=== PATIENT | male | born 1965 | race Caucasian/White ===

== ENCOUNTER 2021-09-11 02:11 | Inpatient (IN) | payer BC, SELFPAY ==
[2021-09-11] VITALS (14 sets, daily range): BP systolic 123–154; BP diastolic 64–103; PULSE 88–121; RESP 14–22; TEMP 36.6–37.2; O2SAT 92–98; BMI 25.0
--- NOTE | 2021-09-11 02:15 | ED_ITS ---
HPI - General Adult General Chief complaint: Toxicology Problem Stated complaint: stopped drinking 2 days ago/trembling Time Seen by Provider: 09/11/21 02:15 History of Present Illness HPI narrative: 56-year-old male smoker with extensive alcohol history presents with a family friend and a chief complaint of symptoms consistent with alcohol withdrawal. He states he has been drinking daily for most of his life but upwards of 1/5 per week for least the past few months. His last drink was about 15 hours ago and he presents with symptoms consisting of headache, diaphoresis, anxiety and agitation as well as a resting tremor. He is nauseated but denies any vomiting. He denies suicidal or homicidal ideations. He denies auditory, visual or tactile hallucinations. He has quit cold turkey in the past and suffered some tremors but never any symptoms as severe as this, let alone seizures. He has never had detox or rehab. Related Data Allergies Allergy/AdvReac Type Severity Reaction Status Date / Time No Known Drug Allergies Allergy Verified 09/11/21 03:40 Review of Systems Review of Systems Narrative: GENERAL: See HP HEENT: Denies sinus pain, ear pain, sore throat, difficulty swallowing, dizziness. RESPIRATORY: Denies dyspnea, cough, wheezing, hemoptysis, sputum. CARDIOVASCULAR: See HPI GASTROINTESTINAL: See HPI : Denies dysuria, frequency, incontinence, hematuria, urinary retention. MUSCULOSKELETAL: denies weakness, joint pain, or bony pain SKIN: See HPI NEUROLOGIC: See HPI. PSYCHIATRIC: No concerning psychosocial issues. 12 point review of systems is negative except for those stated above Patient History Social History Smoking Status: Current every day smoker Exam Narrative Exam Narrative: GENERAL: [56 year old patient appears stated age. Well-developed patient, in obvious distress, agitated, anxious, tremulous and diaphoretic HEAD: Atraumatic. Normocephalic. EYES: Pupils equal round and reactive. Extraocular motions intact. No scleral icterus. No injection or drainage. ENT: Nose without bleeding, purulent drainage. Throat without erythema, tonsillar hypertrophy or exudate. Airway patent. NECK: Trachea midline. Non tender CARDIOVASCULAR: Tachycardic but regular rhythm without murmurs, gallops, or rubs. RESPIRATORY: Clear to auscultation. Breath sounds equal bilaterally. No wheezes, rales, or rhonchi. GASTROINTESTINAL: Abdomen soft, non-tender, nondistended. EXTREMITIES: No edema or joint tenderness. BACK: Nontender without deformity or crepitance. No flank tenderness. NEURO: AOx3. SKIN: Diaphoretic No rash or erythema of visible areas Initial Vital Signs Initial Vital Signs: Vital Signs Temperature 98.8 F 09/11/21 02:32 Pulse Rate 121 H 09/11/21 02:32 Respiratory Rate 22 09/11/21 02:32 Blood Pressure 154/103 H 09/11/21 02:32 Pulse Oximetry 96 09/11/21 02:32 Course Course Course Narrative: MAYEWA-Ar for Alcohol Withdrawal from [facility] on 09/11/2021 All calculations should be rechecked by clinician prior to use RESULT SUMMARY: 23 points Patients with scores >=0 frequently require medication for withdrawal, and may also require admission to the ICU for observation for seizures or development of delirium tremens, and more frequent medication dosing. INPUTS: Nausea/vomiting ?> 4 = Intermittent nausea with dry heaves Tremor ?> 4 = Moderate, with patient's arms extended Paroxysmal sweats ?> 4 = Beads of sweat obvious on forehead Anxiety ?> 4 = Moderately anxious, or guarded, so anxiety is inferred Agitation ?> 4 = Moderately fidgety and restless Tactile disturbances ?> 0 = None Auditory disturbances ?> 0 = Not present Visual disturbances ?> 0 = Not present Headache/fullness in head ?> 3 = Moderate Orientation/clouding of sensorium ?> 0 = Oriented, can do serial additions Orders Ordered: ED Orders 09/11/21 02:30 Urine Drug Screen, Rapid Stat 09/11/21 02:43 CT head/brain wo con Stat 09/11/21 02:45 Acetaminophen Stat COVID19 -Nasal RAPID/Pre-Proc Stat Complete Blood Count AUTO DIFF Stat Comprehensive Metabolic Panel Stat Ethanol (ETOH) Stat Magnesium Stat Salicylate Stat POTASSIUM CHLORIDE IN WATER (Potassium Cl 10 Meq/100 Ml Kailey) 10 meq in 100 mls @ 100 mls/hr IV Q1H JANKI Stop: 09/11/21 09:14 Discontinued Medications Sodium Chloride (Normal Saline 0.9%) 1,000 mls @ 1,000 mls/hr IV BOLUS ONE Stop: 09/11/21 03:29 Last Admin: 09/11/21 03:10 Dose: 1,000 mls/hr Documented by: ELIJAH Thiamine HCl 200 mg/ Sodium (Chloride) 102 mls @ 408 mls/hr IV NOW ONE Stop: 09/11/21 02:31 Last Infusion: 09/11/21 03:41 Dose: 0 mls/hr Documented by: Admin: 09/11/21 03:11 Dose: 408 mls/hr Documented by: ELIJAH Magnesium Sulfate (Magnesium Sulfate) 2 gm in 50 mls @ 150 mls/hr IV NOW ONE Stop: 09/11/21 03:42 Last Infusion: 09/11/21 04:46 Dose: 0 mls/hr Documented by: NANCY Cosigned by: FREDO Admin: 09/11/21 03:50 Dose: 150 mls/hr Documented by: NANCY Cosigned by: FREDO Ondansetron HCl (Ondansetron 4 Mg/2 Ml Inj) 4 mg IV NOW ONE Stop: 09/11/21 02:31 Last Admin: 09/11/21 02:52 Dose: 4 mg Documented by: ELIJAH Phenobarbital (Phenobarbital 65 Mg/Ml Vial) 260 mg IV NOW ONE Stop: 09/11/21 02:31 Last Admin: 09/11/21 02:52 Dose: 260 mg Documented by: ELIJAH Phenobarbital (Phenobarbital 65 Mg/Ml Vial) 130 mg IV NOW ONE Stop: 09/11/21 03:38 Last Admin: 09/11/21 03:50 Dose: 130 mg Documented by: NANCY Vital Signs Vital signs: Vital Signs - 8 hr 09/11/21 02:32 09/11/21 03:38 09/11/21 03:39 Temperature 98.8 F Pulse Rate 121 H 110 H 106 H Respiratory Rate 22 Blood Pressure 154/103 H 134/77 Pulse Oximetry 96 95 96 09/11/21 04:00 09/11/21 04:30 09/11/21 05:00 Temperature Pulse Rate 93 H 93 H 92 H Respiratory Rate Blood Pressure 138/66 136/64 130/73 Pulse Oximetry 92 96 98 Medical Decision Making Lab Data Result diagrams: 09/11/21 02:45 09/11/21 02:45 Labs: Lab Results 09/11/21 09/11/21 09/11/21 Range/Units 02:45 02:45 02:45 WBC 10.9 (4.5-11.0) X10^3/uL RBC 4.18 L (4.5-5.9) X10^6/uL Hgb 14.5 (13.5-17.5) g/dL Hct 41.3 (41-53) % MCV 98.9 (80-100) fL MCH 34.8 H (26-34) PG MCHC 35.2 (30-36) % RDW 13.8 (11.6-14.8) % Plt Count 130 L (150-400) X10^3/uL Neut % (Auto) 86.1 H (50-75) % Lymph % (Auto) 3.9 L (25-40) % Simpson % (Auto) 9.4 (3-14) % Eos % (Auto) 0.0 L (2-4) % Baso % (Auto) 0.6 (0-2) % Neut # (Auto) 9400 H (2455-1444) /uL Lymph # (Auto) 400 L (2060-9944) /uL Simpson # (Auto) 1000 H (0-900) /uL Eos # (Auto) 0 (0-450) /uL Baso # (Auto) 100 (0-100) /uL Sodium 130 L (137-145) mmol/L Potassium 3.1 L (3.4-5.1) mmol/L Chloride 86 L (98-107) mmol/L Carbon Dioxide 32 (22-32) mmol/L BUN 12 (9-20) mg/dL Creatinine 0.48 L (0.66-1.25) mg/dL Estimated GFR > 60 (>60) mL/min BUN/Creatinine Ratio 25.0 H (6-22) Glucose 229 H (70-100) mg/dL Calcium 9.9 (8.4-10.2) mg/dL Magnesium 1.3 L (1.6-2.3) mg/dL Total Bilirubin 1.3 (0.2-1.3) mg/dL AST 161 H (17-59) IU/L ALT 93 H (<50) IU/L Alkaline Phosphatase 73 (38-126) U/L Total Protein 8.0 (6.3-8.2) g/dL Albumin 5.0 (3.5-5.0) g/dL Globulin 3.0 (1.7-4.1) g/dL Albumin/Globulin Ratio 1.7 (1.0-2.8) Salicylates < 1.0 (<20) mg/dL Acetaminophen < 10 (10-30) ug/mL Ethyl Alcohol < 10 ( - 10) mg/dL SARS-CoV-2 (PCR) (Negative) 09/11/21 Range/Units 02:45 WBC (4.5-11.0) X10^3/uL RBC (4.5-5.9) X10^6/uL Hgb (13.5-17.5) g/dL Hct (41-53) % MCV (80-100) fL MCH (26-34) PG MCHC (30-36) % RDW (11.6-14.8) % Plt Count (150-400) X10^3/uL Neut % (Auto) (50-75) % Lymph % (Auto) (25-40) % Simpson % (Auto) (3-14) % Eos % (Auto) (2-4) % Baso % (Auto) (0-2) % Neut # (Auto) (2729-9572) /uL Lymph # (Auto) (5032-8023) /uL Simpson # (Auto) (0-900) /uL Eos # (Auto) (0-450) /uL Baso # (Auto) (0-100) /uL Sodium (137-145) mmol/L Potassium (3.4-5.1) mmol/L Chloride (98-107) mmol/L Carbon Dioxide (22-32) mmol/L BUN (9-20) mg/dL Creatinine (0.66-1.25) mg/dL Estimated GFR (>60) mL/min BUN/Creatinine Ratio (6-22) Glucose (70-100) mg/dL Calcium (8.4-10.2) mg/dL Magnesium (1.6-2.3) mg/dL Total Bilirubin (0.2-1.3) mg/dL AST (17-59) IU/L ALT (<50) IU/L Alkaline Phosphatase (38-126) U/L Total Protein (6.3-8.2) g/dL Albumin (3.5-5.0) g/dL Globulin (1.7-4.1) g/dL Albumin/Globulin Ratio (1.0-2.8) Salicylates (<20) mg/dL Acetaminophen (10-30) ug/mL Ethyl Alcohol ( - 10) mg/dL SARS-CoV-2 (PCR) Negative (Negative) Discharge Plan Departure Patient Disposition: Admitted As Inpatient Clinical Impression: Alcohol withdrawal syndrome, Alcohol withdrawal delirium, Hypomagnesemia, Acute hypokalemia Admit Date/Time: 09/11/21 05:15 Admit Provider: Atif Coffey
--- NOTE | 2021-09-11 02:43 | DI.CT.S_ITS ---
PROCEDURE: CT HEAD/BRAIN WO CON INDICATIONS: fall with injury, extensive etoh history TECHNIQUE: Noncontrast 4.5 mm thick angled axial sections acquired from the foramen magnum to the vertex, with coronal and sagittal reformats. For radiation dose reduction, the following was used: automated exposure control, adjustment of mA and/or kV according to patient size. COMPARISON: None. FINDINGS: Image quality: Excellent. CSF spaces: Basal cisterns are patent. No extra-axial fluid collections. Ventricles are normal in size and shape. Brain: No midline shift. No intracranial masses or hemorrhage. Gandhi-white matter interface is normal. Skull and face: Calvarium and visualized facial bones are intact, without suspicious lesions. Sinuses: Visualized sinuses and mastoids are clear. IMPRESSION: No acute intracranial abnormality. Dictated by: Meaghan Smith M.D. on 09/11/2021 at 8:10 Approved by: Meaghan Smith M.D. on 09/11/2021 at 8:11
[2021-09-11 02:52] LABS: Add Manual Diff / Slide Review NO; Basophils Absolute Auto 100 /uL (0-100); Basophils Percent Auto 0.6 % (0-2); Eosinophils Absolute Auto 0 /uL (0-450); Hematocrit 41.3 % (41-53); Hemoglobin 14.5 g/dL (13.5-17.5); Lymphocytes Absolute Auto 400 /uL (1100-4500); Lymphocytes Percent Auto 3.9 % (25-40); Mean Corpuscular HGB Conc 35.2 % (30-36); Mean Corpuscular Hemoglobin 34.8 PG (26-34); Mean Corpuscular Volume 98.9 fL (80-100); Monocytes Absolute Auto 1000 /uL (0-900); Monocytes Percent Auto 9.4 % (3-14); Neutrophils Absolute Auto 9400 /uL (1500-7000); Neutrophils Percent Auto 86.1 % (50-75); Platelet Count 130 X10^3/uL (150-400); Red Blood Cell Count 4.18 X10^6/uL (4.5-5.9); Red Cell Distribution Width 13.8 % (11.6-14.8); White Blood Cell Count 10.9 X10^3/uL (4.5-11.0)
[2021-09-11] MEDS: ONDANSETRON 4 MG/2 ML INJ IV (02:52)
[2021-09-11] MEDS: PHENobarbital 65 MG/ML VIAL 260 MG IV (02:52)
[2021-09-11 03:01] LABS: Acetaminophen < 10 ug/mL (10-30); Ethanol (ETOH) < 10 mg/dL; Salicylate < 1.0 mg/dL (<20)
[2021-09-11 03:03] LABS: Alanine Aminotransferase 93 IU/L (<50); Albumin Globulin Ratio 1.7 (1.0-2.8); Alkaline Phosphatase 73 U/L (38-126); Aspartate Aminotransferase 161 IU/L (17-59); Bilirubin Total 1.3 mg/dL (0.2-1.3); Blood Urea Nitrogen 12 mg/dL (9-20); Calcium 9.9 mg/dL (8.4-10.2); Carbon Dioxide 32 mmol/L (22-32); Chloride 86 mmol/L (98-107); Estimated Glomerular Filt Rate > 60 mL/min (>60); Glucose 229 mg/dL (70-100); HEMOLYSIS 25 (0-50); Magnesium 1.3 mg/dL (1.6-2.3); Potassium 3.1 mmol/L (3.4-5.1); Sodium 130 mmol/L (137-145)
[2021-09-11] MEDS: SODIUM CHLORIDE 0.9% 1,000 ML 1000 ML IV (03:10)
[2021-09-11] MEDS: THIAMINE 200 MG in SODIUM CHLORIDE 0.9% 100 ML 408 MG IV ×2 (03:11→11:38)
[2021-09-11 03:13] LABS: COVID19 -Nasal RAPID Negative (Negative)
[2021-09-11] MEDS: MAGNESIUM SULFATE 2 GM/50 ML PIGGYBACK IV ×2 (03:50→08:52)
[2021-09-11] MEDS: PHENobarbital 65 MG/ML VIAL 130 MG IV (03:50)
[2021-09-11] MEDS: POTASSIUM CHLORIDE IN WATER 10 MEQ/100 ML PIGGYBACK 100 MEQ IV ×4 (05:35→10:28)
--- NOTE | 2021-09-11 06:10 | P.HP_ITS ---
History of Present Illness History of Present Illness Date Patient Seen: 09/11/21 Time Patient Seen: 06:10 Date of Onset of Symptoms: 09/10/21 Chief complaint: stopped drinking 2 days ago/trembling Narrative: Pt presented to ED with anxuiety and trembling after quitting drinking cold turkey two days ago. He usually drinks about a fifth of liquour per week and doesn't have too much in the way of withdrawal symptoms when he discontinues ho wever this time he required multiple rounds of IV phenobarbitol to get his symptoms under control in the ED. 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 Fell on head ~1 week ago has L eye shiner did not lose consciousness. Patient History Medical History (Updated 09/11/21 @ 06:30 by Deb Ken RN) Emphysema of lung GERD (gastroesophageal reflux disease) Hypertension Family & Social History Safety & Behavioral: Feels Safe in Current Yes Environment Suicidal Ideation Description None Tobacco & Substance use: Smoking Status Current every day smoker alcohol intake frequency 3 or more drinks per day Substance Use Type does not use Meds Home Medications and Allergies Home Medications Medication Instructions Recorded Confirmed Type hydrochlorothiazide 25 mg tablet 25 mg PO DAILY 09/11/21 09/11/21 History omeprazole 40 mg capsule,delayed 40 mg PO DAILY 09/11/21 09/11/21 History release Allergies Allergy/AdvReac Type Severity Reaction Status Date / Time No Known Drug Allergies Allergy Verified 09/11/21 03:40 Review of Systems Review of Systems Narrative: all systems reviewed and negative except as otherwise documented in HPI Exam Vital Signs (past 8 hours): - 09/11/21 02:32 09/11/21 03:38 09/11/21 03:39 Temperature 98.8 F Pulse Rate 121 H 110 H 106 H Respiratory Rate 22 Blood Pressure 154/103 H 134/77 Pulse Oximetry 96 95 96 09/11/21 04:00 09/11/21 04:30 09/11/21 05:00 Temperature Pulse Rate 93 H 93 H 92 H Respiratory Rate Blood Pressure 138/66 136/64 130/73 Pulse Oximetry 92 96 98 Oxygen Delivery Method Room Air HENMT Head: contusion Eyes Alignment and Position: alignment normal and position normal Periorbital: periorbital findings abnormal (L outer periorbital bruise) Pupils: PERRL EOM: EOM intact bilaterally Neck Neck: normal visual inspection and full ROM Resp Auscultation: clear to auscultation bilaterally Cardio Other: fast rate regular rhythm GI Other: active bowel sounds nontender to auscultation Skin General: ecchymosis (fading bruising to L eye socket) and other (mildly diaphoretic) Neuro General: patient alert, patient awake, patient oriented x3 and moves all extremities Other: mildly anxious and shaky. mild asterixes noted. Extrem General: full ROM and no pedal edema Psych Appearance: grossly normal and disheveled Other: shaky but conversant and interactive Objective Labs Result Diagrams: 09/11/21 02:45 09/11/21 02:45 Labs: Laboratory Results - last 24 hr 09/11/21 09/11/21 09/11/21 02:45 02:45 02:45 WBC 10.9 RBC 4.18 L Hgb 14.5 Hct 41.3 MCV 98.9 MCH 34.8 H MCHC 35.2 RDW 13.8 Plt Count 130 L Neut % (Auto) 86.1 H Lymph % (Auto) 3.9 L Garden % (Auto) 9.4 Eos % (Auto) 0.0 L Baso % (Auto) 0.6 Neut # (Auto) 9400 H Lymph # (Auto) 400 L Garden # (Auto) 1000 H Eos # (Auto) 0 Baso # (Auto) 100 Sodium 130 L Potassium 3.1 L Chloride 86 L Carbon Dioxide 32 BUN 12 Creatinine 0.48 L Estimated GFR > 60 BUN/Creatinine Ratio 25.0 H Glucose 229 H Calcium 9.9 Magnesium 1.3 L Total Bilirubin 1.3 AST 161 H ALT 93 H Alkaline Phosphatase 73 Total Protein 8.0 Albumin 5.0 Globulin 3.0 Albumin/Globulin Ratio 1.7 Salicylates < 1.0 Acetaminophen < 10 Ethyl Alcohol < 10 SARS-CoV-2 (PCR) 09/11/21 02:45 WBC RBC Hgb Hct MCV MCH MCHC RDW Plt Count Neut % (Auto) Lymph % (Auto) Garden % (Auto) Eos % (Auto) Baso % (Auto) Neut # (Auto) Lymph # (Auto) Garden # (Auto) Eos # (Auto) Baso # (Auto) Sodium Potassium Chloride Carbon Dioxide BUN Creatinine Estimated GFR BUN/Creatinine Ratio Glucose Calcium Magnesium Total Bilirubin AST ALT Alkaline Phosphatase Total Protein Albumin Globulin Albumin/Globulin Ratio Salicylates Acetaminophen Ethyl Alcohol SARS-CoV-2 (PCR) Negative Assessment & Plan Assessment & Plan narrative: #Alcohol withdrawal syndrome got phenobarb in ED feeling a bit better still some diaphoresis and shakiness continue protocol prn IV benzos thiamine and IVF elevated liver enzymes c/w alcohol abuse #Hypomagnesemia repleted in ED will continue with IV thiamine, K, magnesium in IVF #Acute hypokalemia mild replete and recheck #GERD mild continue home omeprazole #essential hypertension per pt report, home meds not in the computer, monitor BP for now with PRN labetalol #s/p GLF with head injury no LOC L eye bruise is fading states he just tripped on something a week ago. fall precautions. 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
[2021-09-11 07:02] LABS: UR Morphine/Opiate cutoff 300 Negative (Negative); Ur Creatinine Normal (Normal); Ur Specific Gravity Normal (Normal); Urine Amphetamines Negative (Negative); Urine Barbiturates Negative (Negative); Urine Benzodiazepines Negative (Negative); Urine Cocaine Negative (Negative); Urine MDMA Negative (Negative); Urine Methadone Negative (Negative); Urine Methamphetamines Negative (Negative); Urine Oxycodone Negative (Negative); Urine Phencyclidine Negative (Negative); Urine Tetrahydrocannabinol Negative (Negative); Urine Tricyclic Antidepressant Negative (Negative); Urine pH Normal (Normal)
[2021-09-11] MEDS: SODIUM CHLORIDE 0.9% 1,000 ML 100 ML IV ×2 (07:04→20:15)
[2021-09-11] MEDS: ACETAMINOPHEN 325 MG TABLET 650 MG PO ×2 (07:23→20:31)
[2021-09-11] MEDS: PANTOPRAZOLE DR 40 MG TABLET PO (07:30)
[2021-09-11] MEDS: hydroCHLOROthiazide 25 MG TABLET PO (08:16)
[2021-09-11] MEDS: DOCUSATE 100 MG CAPSULE PO ×2 (08:16→20:30)
[2021-09-11] MEDS: FOLIC ACID 1 MG TABLET PO (08:16)
[2021-09-11] MEDS: ENOXAPARIN 40 MG/0.4 ML SYRINGE SUBCUT (08:16)
[2021-09-11] MEDS: THIAMINE 100 MG TABLET PO (08:17)
[2021-09-11] MEDS: NICOTINE 14 PATCH 14 MG TOP (08:17)
[2021-09-11] MEDS: MULTIVITAMIN 1 TABLET 1 TAB PO (08:17)
[2021-09-11] MEDS: LORazepam 2 MG/ML INJ IV (09:19)
--- NOTE | 2021-09-11 09:25 | CM.DANOTE ---
Patient is a 56 yo male was admitted on 09/11/21 for ETOH. Pt has [employer] for insurance and his PCP is not listed. EMR was reviewed. Per MD, pt admitted for ETOH withdrawal requiring med management and on [facility] protocol. SW met bedside with pt and explained role and pt confirms he lives at home with spouse of 32 yrs in [place] and pt works at [employer] through a contracted company. Pt is independent at baseline, drives, completes own ADLs and is employed and does not use DME for ambulation. Pt states he was on [facility] visiting an old [id number] jack when he became weak, tremulous, and could not walk and began having ETOH withdrawals. Pt confirms he started by drinking beer on the weekends and then switched to Whiskey and now has at least a 5th of Whiskey a week. Pt denies any hx of ETOH tx but confirms he stopped cold turkey 3 days ago because he has begun to notice the negative physical and medical impacts alcohol is having on his body and states it's begun to have a negative effect on my marriage. Pt denies any hx of significant ETOH withdrawals before and confirms that this is the worst withdrawals he has had yet. SW discussed the increased negative impacts of ETOH on the body as it ages and that withdrawal symptoms tend to increase with age as well as increased medical conditions with ongoing alcohol consumption and pt acknowledges understanding and beginning to notice this change. Pt states he stopped drinking in Mar 2021 a few months ago on his own and noticed how much better he felt but then relapsed. Pt has considered ETOH tx, he states ideally he would be interested in a 7 day program, but has felt too embarrassed to take the final step of calling to set it up. Pt states he is not comfortable talking to others besides hospital staff about his personal issues which is a barrier to him setting up treatment or ETOH counseling. Pt is still in the contemplative stage and not yet willing to take the official step of setting up outpt or inpt tx at this time but is agreeable with SW checking on him closer to d/c about providing ETOH resources. Pt states his vehicle is local as he was visiting his friend on [facility] and likely plans to drive himself back home to [place] when medically stable and has been attempting to get sol of his spouse to inform her he is in the hospital. Plan: SW to follow closer to d/c to confirm if pt remains interested in ETOH resources prior to d/c back home with spouse via own POV. ROWAN Lozano Discharge Planning/Care Management CM Discharge Assessment Start: 09/11/21 09:20 Freq: Status: Active Protocol: Document 09/11/21 09:21 BF (Rec: 09/11/21 09:25 BF [id number]) Discharge Planning Assessment Assigned Protection Officer ROWAN Morales DPOA/Assigned Designee Name spouse Arabella informally Advance Directives? No Advance Directives on File No History Provided By Patient,Medical Record Has Patient been admitted in last 30 No days? Prior Living Arrangements House Household Members spouse Type of transporation used prior to Drives own vehicle admit Independent with ADL's Yes Is patient alert and oriented? Yes Caregiver for Another No Barriers to Discharge No Discharge Plan Home Transportation Arrangement Has own vehicle here Referrals Initiated Other Additional Comment If pt remains interested, will provide ETOH resources Whiteboard Updated in Patient Room with Yes name and ext. # of Protection Officer Review Status In Process Please Provide Date Initial DC 09/11/21 Assessment Was Performed Next Review Type Continued Stay Review
[2021-09-11] MEDS: FLUTICASONE 120 SPRAY/16 GM SPRAY.SUSP NASAL (13:35)
--- NOTE | 2021-09-11 18:50 | PC.NURSE ---
Pt is AxOx4, independent and cooperative. VSS, pt c/o headache in the morning and recieved PRN tylenol 650mg with good effect. Pt later c/o feeling sweaty and nauseas so then CIWA assessment done. it was -10 so pt recieved 1mg IV Ativan with good effect. Pt is eating and drinking well. Also, pt is recieved IV NS 100 ml/hr. Pt's CIWA score was 0 since he recieved Ativan. Pt recieved IV Potassium, Magnesium and Thiamine. No other changes. Continue monitor.
[2021-09-11] MEDS: BENZOCAINE/MENTHOL 1 LOZ PKT 1 EACH PO (22:51)
[2021-09-12 00:20] VITALS: BP 144/84; PULSE 97; RESP 18; TEMP 37.2; O2SAT 97
[2021-09-12] MEDS: ACETAMINOPHEN 325 MG TABLET 650 MG PO (04:44)
[2021-09-12 04:50] VITALS: BP 154/88; PULSE 86; RESP 18; TEMP 36.9; O2SAT 99
[2021-09-12 05:46] LABS: Hematocrit 38.3 % (41-53); Hemoglobin 13.5 g/dL (13.5-17.5); Mean Corpuscular HGB Conc 35.2 % (30-36); Mean Corpuscular Hemoglobin 35.3 PG (26-34); Mean Corpuscular Volume 100.1 fL (80-100); Platelet Count 82 X10^3/uL (150-400); Red Blood Cell Count 3.83 X10^6/uL (4.5-5.9); Red Cell Distribution Width 13.4 % (11.6-14.8); White Blood Cell Count 6.7 X10^3/uL (4.5-11.0)
[2021-09-12 05:53] LABS: BUN Creatinine Ratio 9.8 (6-22); Blood Urea Nitrogen 5 mg/dL (9-20); Calcium 8.7 mg/dL (8.4-10.2); Carbon Dioxide 29 mmol/L (22-32); Chloride 99 mmol/L (98-107); Estimated Glomerular Filt Rate > 60 mL/min (>60); Glucose 100 mg/dL (70-100); HEMOLYSIS < 15 (0-50); Potassium 3.4 mmol/L (3.4-5.1); Sodium 130 mmol/L (137-145)
[2021-09-12] MEDS: PANTOPRAZOLE DR 40 MG TABLET PO (05:53)
[2021-09-12] MEDS: SODIUM CHLORIDE 0.9% 1,000 ML 100 ML IV (06:20)
[2021-09-12 07:45] VITALS: BP 142/81; PULSE 86; RESP 17; TEMP 36.9; O2SAT 94
[2021-09-12] MEDS: hydroCHLOROthiazide 25 MG TABLET PO (08:11)
[2021-09-12] MEDS: THIAMINE 100 MG TABLET PO (08:11)
[2021-09-12] MEDS: MULTIVITAMIN 1 TABLET 1 TAB PO (08:11)
[2021-09-12] MEDS: FOLIC ACID 1 MG TABLET PO (08:11)
[2021-09-12] MEDS: NICOTINE 14 PATCH 14 MG TOP (08:11)
[2021-09-12] MEDS: FLUTICASONE 120 SPRAY/16 GM SPRAY.SUSP NASAL (08:12)
[2021-09-12] MEDS: POTASSIUM CHLORIDE 20 MEQ TAB 40 MEQ PO (08:13)
[2021-09-12 08:55] VITALS: BMI 25.0
[2021-09-12 11:30] VITALS: BP 142/96; PULSE 103; RESP 19; TEMP 36.7; O2SAT 97
--- NOTE | 2021-09-12 15:29 | PM.PN.1 ---
Subjective Subjective Date Patient Seen: 09/12/21 Time Patient Seen: 08:00 Interval history: Feeling improved today. He thinks his withdrawal symptoms are much better. He is notably tremulous and diaphoretic. Exam Vital Signs (past 8 hours): - 09/12/21 07:45 09/12/21 11:30 Temperature 98.5 F 98.0 F Pulse Rate 86 103 H Respiratory Rate 17 19 Blood Pressure 142/81 H 142/96 H Pulse Oximetry 94 97 Oxygen Delivery Method Room Air Oxygen Flow Rate 0 Narrative Exam Narrative: GEN: no acute distress CV: regular rate and rhythm, no murmurs SKIN: diaphoretic NEURO: awake, alert, tremulous Objective Labs Result Diagrams: 09/12/21 05:15 09/12/21 05:15 Labs: Laboratory Results - last 24 hr 09/12/21 09/12/21 09/12/21 05:15 05:15 05:15 WBC 6.7 RBC 3.83 L Hgb 13.5 Hct 38.3 L MCV 100.1 H MCH 35.3 H MCHC 35.2 RDW 13.4 Plt Count 82 L Sodium 130 L Potassium 3.4 Chloride 99 Carbon Dioxide 29 BUN 5 L Creatinine 0.51 L Estimated GFR > 60 BUN/Creatinine Ratio 9.8 Glucose 100 D Calcium 8.7 Magnesium 2.0 PFSH Medical History (Updated 09/11/21 @ 06:31 by Deb Ken RN) Emphysema of lung Enlarged tonsils and adenoids GERD (gastroesophageal reflux disease) Hypertension Surgical History (Updated 09/11/21 @ 06:31 by Deb Ken RN) H/O nasal septoplasty Social History household members: spouse Smoking Status: Current every day smoker Assessment & Plan Assessment & Plan narrative: #Alcohol withdrawal syndrome got phenobarb in ED feeling a bit better still some diaphoresis and shakiness continue protocol prn IV benzos thiamine and IVF elevated liver enzymes c/w alcohol abuse order thiamine, folate, mvi ciwa protocol for withdrawal dc with naltrexone for cravings #Hypomagnesemia repleted in ED will continue with IV thiamine, K, magnesium in IVF #Acute hypokalemia mild replete and recheck #GERD mild continue home omeprazole #essential hypertension per pt report, home meds not in the computer, monitor BP for now with PRN labetalol #s/p GLF with head injury no LOC L eye bruise is fading states he just tripped on something a week ago. fall precautions. Time Spent With Patient Critical Care time: I spent a total of [] minutes of critical care time on this patient's care today; this time is exclusive of procedural time. Quality VTE Deep Vein Thrombosis/Pulmonary Embolism Present on Admission: No
[2021-09-12 17:00] VITALS: BP 137/79; PULSE 94; RESP 20; TEMP 36.9; O2SAT 96
[2021-09-12 20:15] VITALS: BP 162/96; PULSE 98; RESP 18; TEMP 36.7; O2SAT 98
[2021-09-13 01:30] VITALS: BP 139/72; PULSE 77; RESP 16; TEMP 36.8; O2SAT 98
[2021-09-13 05:33] LABS: BUN Creatinine Ratio 12.8 (6-22); Blood Urea Nitrogen 6 mg/dL (9-20); Calcium 9.2 mg/dL (8.4-10.2); Carbon Dioxide 26 mmol/L (22-32); Chloride 100 mmol/L (98-107); Estimated Glomerular Filt Rate > 60 mL/min (>60); Glucose 114 mg/dL (70-100); HEMOLYSIS < 15 (0-50); Potassium 3.2 mmol/L (3.4-5.1); Sodium 134 mmol/L (137-145)
[2021-09-13] MEDS: PANTOPRAZOLE DR 40 MG TABLET PO (05:49)
[2021-09-13 06:00] VITALS: BP 141/92; PULSE 61; RESP 14; TEMP 36.4; O2SAT 100
[2021-09-13 08:00] VITALS: BP 139/92; PULSE 90; RESP 19; TEMP 36.1; O2SAT 98
[2021-09-13] MEDS: MULTIVITAMIN 1 TABLET 1 TAB PO (09:47)
[2021-09-13] MEDS: hydroCHLOROthiazide 25 MG TABLET PO (09:47)
[2021-09-13] MEDS: FOLIC ACID 1 MG TABLET PO (09:47)
[2021-09-13] MEDS: THIAMINE 100 MG TABLET PO (09:47)
[2021-09-13] MEDS: NICOTINE 14 PATCH 14 MG TOP (09:48)
[2021-09-13] MEDS: POTASSIUM CHLORIDE 20 MEQ/15 ML UDC 40 MEQ PO (09:53)
--- NOTE | 2021-09-13 10:05 | P.DS_ITS ---
History of Present Illness History of Present Illness Date Patient Seen: 09/13/21 Time Patient Seen: 10:05 Chief complaint: stopped drinking 2 days ago/trembling Narrative: History of Present Illness History of Present Illness Date Patient Seen: 09/11/21 Time Patient Seen: 06:10 Date of Onset of Symptoms: 09/10/21 Chief complaint: stopped drinking 2 days ago/trembling Narrative: Pt presented to ED with anxuiety and trembling after quitting drinking cold turkey two days ago. He usually drinks about a fifth of liquour per week and doesn't have too much in the way of withdrawal symptoms when he discontinues however this time he required multiple rounds of IV phenobarbitol to get his symptoms under control in the ED. 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 Fell on head ~1 week ago has L eye shiner did not lose consciousness. Patient History Medical History?(Updated 09/11/21 @ 06:30 by Deb Ken RN) Emphysema of lung GERD (gastroesophageal reflux disease) Hypertension Family & Social History Safety & Behavioral: Feels Safe in Current ? Yes ? Environment ? Suicidal Ideation Description? None? Tobacco & Substance use: Smoking Status? Current every day smoker? alcohol intake frequency? 3 or more drinks per day? Substance Use Type? does not use? Discharge Providers Provider Date of admission: 09/11/21 05:15 Discharge Date: 09/13/21 Consults: 09/11/21 06:08 Consult to Dietitian, Adult Routine Comment: Reason For Exam: etoh wdrawal 09/11/21 06:49 Consult to Respiratory Therapy Evaluate & Treat Comment: Physician Instructions: Evaluate and treat Consult to Explosive Ordnance Handler Routine Comment: Discharge provider: Kate Pruitt DO Summary Hospital Course Discharge Diagnosis: ETOH ABUSE; WITH POSS ETOH WITHDRAWAL. RESOLVED APPEARS AT BASELINE. COUNSELING GIVEN POSSIBLE ANXIETY AND DEPRESSION NOS. DISCHARGE ON NEW MEDS. COUNSELING GIVEN WELL HYPOKALEMIA. POTASSIUM TO BE REPLACED PRIOR TO DISCHARGE. THROMBOCYTOSIS. HE RELATED TO ALCOHOL ABUSE. WORKUP OUTPATIENT TO RULE OU T CIRRHOSIS HYPONATREMIA. MULTIFACTORIAL. NO ACUTE TREATMENT INDICATED. MONITOR CLOSELY Hospital Course: THIS IS A VERY PLEASANT 56-YEAR-OLD MAN ADMITTED TO THE HOSPITAL WITH SIGN OF POSSIBLE ALCOHOL WITHDRAWAL. PATIENT ADMITTED USING EXTENSIVE AMOUNT OF ALCOHOL PRIOR TO ADMISSION. HE WAS PLACED ON OBSERVATION MONITOR CLOSELY. HE WAS NOTED TO HAVE SOME TREMORS PRESENT IN THE ER WHICH HAVE NOW RESOLVED. MENTALLY PATIENT APPEARED TO BE BACK TO BASELINE. LABS IS BEEN FAIRLY STABLE APART FROM SOME MILD ELECTROLYTE IMBALANCE WHICH WILL BE CORRECTED ON DISPOSITION. PATIENT WAS ON HYDROCHLOROTHIAZIDE . THIS WILL BE CONTINUED AT THIS TIME WELL DUE TO HYPOKALEMIA NOTED PRIOR TO DISCHARGE. PATIENT ENCOURAGED TO SEEK FOR HELP IN THE COMMUNITY IN REGARD TO SUBSTANCE ABUSE. BOTTOMING ROOM INSPECTOR IS AWARE AND WILL PROVIDE PATIENT WITH THE RESOURCES REQUESTED PRIOR TO DISCHARGE. PATIENT COULD SELF REFERRED TO AA WELL OTHER PROGRAMS AVAILABLE IN THE AREA TO HELP WITH HIS SUBSTANCE ABUSE. IN THE MEANWHILE, HE WILL BE STARTED ON CLONIDINE B.I.D. WELL GABAPENTIN T.I.D. ALSO STARTED ON BUSPAR TO HELP WITH ANXIETY AND DEPRESSION WHICH HE REPORTED. TRAZODONE WILL BE ADDED TO HELP WITH SLEEP AT NIGHT WELL ANXIETY. EXTENSIVE COUNSELING GIVEN PRIOR TO DISCHARGE. PATIENT WILL NEED A CT SCAN OF THE ABDOMEN VERSUS ULTRASOUND TO RULE OUT POSSIBLE DEVELOPING CIRRHOSIS . THIS CAN BE DONE OUTPATIENT COULD ALSO BE REFERRED TO GASTROENTEROLOGY OUTPATIENT FOR FURTHER CARE. DUE TO HIS LOW PLATELET, HE NEEDS TO BE MONITOR CLOSELY ADDITIONAL MANAGEMENT WILL BE DEFERRED TO OUTPATIENT PROVIDERS Exam Vital Signs (past 8 hours): - 09/13/21 06:00 09/13/21 08:00 Temperature 97.5 F L 96.9 F L Pulse Rate 61 90 Respiratory Rate 14 19 Blood Pressure 141/92 H 139/92 H Pulse Oximetry 100 98 Oxygen Delivery Method Room Air Oxygen Flow Rate 0 Narrative Exam Narrative: NO ACUTE DISTRESS. PATIENT IS ALERT ORIENTED X3. APPEARS MOST OLDER THAN STATED AGE VITAL SIGNS STABLE HEAD ATRAUMATIC NORMOCEPHALIC NECK : SUPPLE WITHOUT ADENOPATHY NO CAROTID BRUITS EYE: EOMI, PERRLA, NORMAL CONJUNCTIVA; NO JAUNDICE CHEST: REGULAR RATE. NO RUBS. PMI IS NON DISPLACED. NO MURMURS; NORMAL S1- S2 PULMONARY: DECREASED BS OVER THE BASES. MILD BIBASILAR CRACKLES NOTED; NO INCREASED DULLNESS TO PERCUSSION ABDOMEN: SOFT. NONTENDER. NONDISTENDED. BOWEL SOUNDS ARE PRESENT IN ALL 4 QUADRANTS. NO MASS. EXTREMITIES: NO EDEMA.. NO CYANOSIS CLUBBING NOTED. NEURO: CRANIAL NERVES 2-12 GROSSLY INTACT. NO FOCAL NEUROLOGICAL DEFICIT NOTED. MSK: NORMAL RANGE OF MOTION FOR AGE. NO JOINT EFFUSION. POOR MUSCULATURE. SKIN: NORMAL FOR ETHNICITY; NO ECCHYMOSIS. NO LESION. GOOD TURGOR.; NO RASHES : NORMAL EXTERNAL GENITALIA. PSYCH : APPROPRIATE MOOD AND AFFECT. ALERT AWAKE ORIENTED X3 Objective Labs Result Diagrams: 09/12/21 05:15 09/13/21 05:06 Labs: Laboratory Results - last 24 hr 09/13/21 05:06 Sodium 134 L Potassium 3.2 L Chloride 100 Carbon Dioxide 26 BUN 6 L Creatinine 0.47 L Estimated GFR > 60 BUN/Creatinine Ratio 12.8 Glucose 114 H Calcium 9.2 PFSH Medical History (Updated 09/11/21 @ 06:31 by Deb Ken RN) Emphysema of lung Enlarged tonsils and adenoids GERD (gastroesophageal reflux disease) Hypertension Surgical History (Updated 09/11/21 @ 06:31 by Deb Ken RN) H/O nasal septoplasty Social History household members: spouse Smoking Status: Current every day smoker Discharge Plan Discharge Plan Patient Disposition: Home Discharge orders & Medications Prescriptions: New clonidine HCl 0.1 mg Tablet 0.1 mg PO BID Qty: 60 1RF folic acid 1 mg Tablet 1 mg PO DAILY Qty: 60 1RF multivitamin with folic acid [Tab-A-Sharee] 400 mcg Tablet 1 tab PO DAILY Qty: 60 1RF nicotine [Nicoderm CQ] 14 mg/24 hr patch 24 hour 1 patch transdermal DAILY Qty: 28 1RF thiamine HCl (vitamin B1) 500 mg tablet 500 mg PO DAILY Qty: 60 1RF buspirone 10 mg tablet 10 mg PO BID Qty: 60 1RF trazodone 50 mg tablet 50 mg PO BEDTIME Qty: 60 1RF gabapentin 300 mg capsule 300 mg PO TID Qty: 90 1RF Continued omeprazole 40 mg capsule,delayed release(DR/EC) 40 mg PO BID 0RF Discontinued hydrochlorothiazide 25 mg tablet 25 mg PO DAILY 0RF Diet/Activity/Treatments Diet: Diet as Tolerated and Regular Activity: TOLERATED Visit Report/Discharge Packet Stand Alone Forms: Naloxone Standing Order WADOH Quality VTE Deep Vein Thrombosis/Pulmonary Embolism Present on Admission: No
--- NOTE | 2021-09-13 10:29 | PC.NURSE ---
Pt is dressed and ready for discharge home with friend. IV has been removed. Went over d/c instructions with Pt-discussed d/c meds, time of last dose, provided handouts for his new medications, reviewed stroke education, had a very long discussion about alcoholism, AA, Al-Anon, marital counseling, stress, and never drinking again-not even a sip. Pt was very responsive to suggestions and is working with Care Management/SW to set up outpatient care. Pt denies further questions and will be discharged out with friend Geovani who he will be staying with for the time being.
--- NOTE | 2021-09-13 11:14 | PC.NURSE ---
Pt out via w/c by BLOW MOLDING MACHINE OPERATOR to POV with friend and all belongings.
--- NOTE | 2021-09-13 12:17 | CM.DPC ---
DCP/continued: Reviewed chart. Received verbal referral from provider that patient will d/c home today but needs ETOH resources. OPERATING SYSTEMS PROGRAMMER met with patient and friend at bedside explained role. Patient reports that he wants to stop drinking. OPERATING SYSTEMS PROGRAMMER provided patient with community resources for ETOH and instructed patient to call his insurance to obtain substance abuse benefit. Patient aware and agreeable. Also encouraged patient go to AA meeting's right away. P: Home today, ETOH resources provided. JESUS
== END 2021-09-13 11:14 | disposition home or self-care (01) | DRG 897 ==
LOC: ED 02:33 → AC 05:16
PROVIDERS: Admitting Provider Family Medicine; Emergency Provider Emergency Medicine; Referring Provider Emergency Medicine; Visit Provider Internal Medicine
DX: F10.239 Alcohol dependence with withdrawal, unspecified (principal); E87.6 Hypokalemia; E83.42 Hypomagnesemia; K21.9 Gastro-esophageal reflux disease without esophagitis; I10 Essential (primary) hypertension; F41.9 Anxiety disorder, unspecified; F32.A Depression, unspecified; F17.200 Nicotine dependence, unspecified, uncomplicated; S00.12XA Contusion of left eyelid and periocular area, initial encounter; W01.0XXA Fall on same level from slipping, tripping and stumbling without subsequent striking against object, initial encounter; Y90.0 Blood alcohol level of less than 20 mg/100 ml; Z20.822 Contact with and (suspected) exposure to COVID-19
CPT/HCPCS: 36415; 70450; 80048; 80053; 80305; 80320; 80329; 83735; 85025; 85027; 87635; 96365; 96367; 96375; 96376; 99284; C9803; G0480; J1650; J2060; J2405; J2560; J3475

== ENCOUNTER 2022-01-02 20:36 | Inpatient (IN) | payer BC, SELFPAY ==
[2022-01-02] VITALS (8 sets, daily range): BP systolic 130–149; BP diastolic 79–94; PULSE 88–102; RESP 18–34; TEMP 36.7; O2SAT 93–100
[2022-01-02 21:30] LABS: Add Manual Diff / Slide Review NO; Basophils Absolute Auto 0 /uL (0-100); Basophils Percent Auto 0.2 % (0-2); Eosinophils Absolute Auto 0 /uL (0-450); Eosinophils Percent Auto 0.7 % (2-4); Hematocrit 43.9 % (41-53); Lymphocytes Absolute Auto 3600 /uL (1100-4500); Lymphocytes Percent Auto 49.6 % (25-40); Mean Corpuscular HGB Conc 34.3 % (30-36); Mean Corpuscular Volume 90.5 fL (80-100); Monocytes Absolute Auto 600 /uL (0-900); Monocytes Percent Auto 8.4 % (3-14); Neutrophils Absolute Auto 3000 /uL (1500-7000); Neutrophils Percent Auto 41.1 % (50-75); Platelet Count 121 X10^3/uL (150-400); Red Blood Cell Count 4.85 X10^6/uL (4.5-5.9); Red Cell Distribution Width 12.9 % (11.6-14.8); White Blood Cell Count 7.3 X10^3/uL (4.5-11.0)
[2022-01-02 21:35] LABS: Alanine Aminotransferase 88 IU/L (<50); Albumin 4.4 g/dL (3.5-5.0); Albumin Globulin Ratio 1.4 (1.0-2.8); Alkaline Phosphatase 94 U/L (38-126); Aspartate Aminotransferase 138 IU/L (17-59); BUN Creatinine Ratio 9.7 (6-22); Bilirubin Total 0.8 mg/dL (0.2-1.3); Blood Urea Nitrogen 6 mg/dL (9-20); Calcium 8.8 mg/dL (8.4-10.2); Carbon Dioxide 25 mmol/L (22-32); Chloride 96 mmol/L (98-107); Estimated Glomerular Filt Rate > 60 mL/min (>60); Ethanol (ETOH) 280 mg/dL; Globulin 3.2 g/dL (1.7-4.1); Glucose 142 mg/dL (70-100); HEMOLYSIS 15 (0-50); Potassium 3.3 mmol/L (3.4-5.1); Sodium 136 mmol/L (137-145); Total Protein 7.6 g/dL (6.3-8.2)
[2022-01-02 22:03] LABS: COVID19 -Nasal RAPID Negative (Negative)
[2022-01-02 22:17] LABS: Appearance Urine UA CLEAR; Bilirubin Urine UA NEGATIVE (NEGATIVE); Color Urine UA YELLOW; Glucose Urine UA NEGATIVE (Negative); Ketones Urine UA TRACE (NEGATIVE); Leukocyte Esterase Urine UA NEGATIVE (NEGATIVE); Nitrite Urine UA NEGATIVE (Negative); Occult Blood Urine UA NEGATIVE (Negative); Protein Urine UA NEGATIVE (Negative); Specific Gravity Urine UA <=1.005 (1.000-1.035)
[2022-01-02 22:20] LABS: TSH w/ Reflex to FT4 0.95 uIU/mL (0.47-4.68)
[2022-01-02 22:22] LABS: UR Morphine/Opiate cutoff 300 Negative (Negative); Ur Creatinine Normal (Normal); Ur Specific Gravity Normal (Normal); Urine Amphetamines Negative (Negative); Urine Barbiturates Negative (Negative); Urine Benzodiazepines Negative (Negative); Urine Cocaine Negative (Negative); Urine MDMA Negative (Negative); Urine Methadone Negative (Negative); Urine Methamphetamines Negative (Negative); Urine Oxycodone Negative (Negative); Urine Phencyclidine Negative (Negative); Urine Tetrahydrocannabinol Positive (Negative); Urine Tricyclic Antidepressant Negative (Negative); Urine pH Normal (Normal)
[2022-01-02 22:25] LABS: Bacteria Urine None Seen; Culture Indicated Urine Cult Not Indicated; RBC Urine None Seen (0-5/HPF); Urine Comments Microscopic Normal; WBC Urine None Seen (0-5/HPF)
--- NOTE | 2022-01-02 22:34 | ED.ALCOHOL ---
HPI - Alcohol General Chief Complaint: Toxicology Problem Stated Complaint: ETOH DETOX Time Seen by Provider: 01/02/22 21:21 Source: patient Mode of arrival: Ambulatory History of Present Illness HPI narrative: 56-year-old male daily smoker and heavy drinker presents with family requesting medical clearance for detox. He is had withdrawals in the past and desperately wants to stop drinking. He has been drinking rather heavily more days than not for at least the past few weeks and most recently drank this morning. He denies any headache or blurred vision. He denies any chest pain, shortness of breath or cough. He is had no nausea, vomiting or diarrhea. Related Data Home Medications Medication Instructions Recorded Confirmed omeprazole 40 mg capsule,delayed 40 mg PO BID acid 09/11/21 01/03/22 release cholecalciferol (vitamin D3) 125 125 mcg PO BID 01/03/22 01/03/22 mcg (5,000 unit) tablet (Vitamin D3) naltrexone 50 mg tablet 50 mg PO DAILY 01/03/22 01/03/22 Previous Rx's Medication Instructions Recorded buspirone 10 mg tablet 10 mg PO BID #60 tabs 09/13/21 clonidine HCl 0.1 mg tablet 0.1 mg PO BID #60 tabs 09/13/21 folic acid 1 mg tablet 1 mg PO DAILY #60 tabs 09/13/21 gabapentin 300 mg capsule 300 mg PO TID #90 caps 09/13/21 multivitamin with folic acid 400 1 tab PO DAILY #60 tabs 09/13/21 mcg tablet (Tab-A-Sharee) thiamine HCl (vitamin B1) 500 mg 500 mg PO DAILY #60 tabs 09/13/21 tablet trazodone 50 mg tablet 50 mg PO BEDTIME #60 tabs 09/13/21 chlordiazepoxide HCl 25 mg capsule See Rx Instructions .Route 01/05/22 .COMPLEX #10 caps Allergies Allergy/AdvReac Type Severity Reaction Status Date / Time No Known Drug Allergies Allergy Verified 09/11/21 03:40 Review of Systems Review of Systems Narrative: GENERAL: Denies chills, fatigue, malaise, fever, sweats. HEENT: Denies sinus pain, ear pain, sore throat, difficulty swallowing, dizziness. RESPIRATORY: Denies dyspnea, cough, wheezing, hemoptysis, sputum. CARDIOVASCULAR: Denies chest pain, palpitations, orthopnea, edema, GASTROINTESTINAL: Denies nausea, vomiting, abdominal pain, diarrhea, constipation, melena. : Denies dysuria, frequency, incontinence, hematuria, urinary retention. MUSCULOSKELETAL: denies weakness, joint pain, or bony pain SKIN: Denies rash, skin lesions, or other NEUROLOGIC: Denies weakness, headache, numbness, change in speech, confusion, seizures, incoordination. PSYCHIATRIC: No concerning psychosocial issues. 12 point review of systems is negative except for those stated above Patient History Medical History Emphysema of lung Enlarged tonsils and adenoids GERD (gastroesophageal reflux disease) Hypertension Surgical History H/O nasal septoplasty Family History Mother COPD (chronic obstructive pulmonary disease) Scleroderma Father COPD (chronic obstructive pulmonary disease) Myocardial infarction Social History household members: spouse Smoking Status: Current every day smoker alcohol intake: current Smoking Status: Current every day smoker alcohol intake frequency: 3 or more drinks per day Alcohol type: hard liquor Substance Use Type: does not use Exam Narrative Exam Narrative: GENERAL: [56] year old patient appears stated age. Well-developed patient, in mild distress. HEAD: Atraumatic. Normocephalic. EYES: Pupils equal round and reactive. Extraocular motions intact. No scleral icterus. No injection or drainage. ENT: Nose without bleeding, purulent drainage. Throat without erythema, tonsillar hypertrophy or exudate. Airway patent. NECK: Trachea midline. Non tender CARDIOVASCULAR: Regular rate and rhythm without murmurs, gallops, or rubs. RESPIRATORY: Clear to auscultation. Breath sounds equal bilaterally. No wheezes, rales, or rhonchi. GASTROINTESTINAL: Abdomen soft, non-tender, nondistended. EXTREMITIES: No edema or joint tenderness. BACK: Nontender without deformity or crepitance. No flank tenderness. NEURO: AOx3. SKIN: No rash or erythema of visible areas Initial Vital Signs Initial Vital Signs: Vital Signs Temperature 98.1 F 01/02/22 20:45 Pulse Rate 102 H 01/02/22 20:45 Respiratory Rate 18 01/02/22 20:45 Blood Pressure 138/85 01/02/22 20:45 Pulse Oximetry 98 01/02/22 20:45 Oxygen Delivery Method 01/02/22 20:45 Course Course Course Narrative: 0030 -patient starting to feel a bit jittery and anxious, it has been nearly 12 hours since his last drink. Patient given phenobarb 260 mg IV 0115 -patient feeling significant improvement after phenobarb, no indication for repeat dosing. Repeat ethanol level is back, now 152. His potassium has been replaced, he is now medically cleared for detox, call to facility Orders Ordered: Discontinued Medications Acetaminophen (Acetaminophen 325 Mg Tablet) 650 mg PO Q6HR PRN PRN Reason: Fever/Mild Pain (1-3) Al Hydrox/Mg Hydrox/Simethicone (Mag Hydrox/Alum/Simeth 30 Ml Udc) 30 ml PO Q4HR PRN PRN Reason: Dyspepsia Last Admin: 01/03/22 10:48 Dose: 30 ml Documented By: BASHIR Artificial Tears (Polyvinyl Alcohol Drops) 1 drops EYE-BOTH PRN PRN PRN Reason: Dry Eye(s) Last Admin: 01/03/22 18:08 Dose: 1 drop Documented By: BASHIR Buspirone HCl (Buspirone 5 Mg Tablet) 10 mg PO BID [facility] Last Admin: 01/05/22 09:11 Dose: 10 mg Documented By: Admin: 01/04/22 20:23 Dose: 10 mg Documented By: Admin: 01/04/22 08:42 Dose: 10 mg Documented By: Admin: 01/03/22 20:41 Dose: 10 mg Documented By: Admin: 01/03/22 10:50 Dose: 10 mg Documented By: BASHIR Chlordiazepoxide HCl (Chlordiazepoxide 25 Mg Capsule) 50 mg PO TID [facility] Last Admin: 01/05/22 09:11 Dose: 50 mg Documented By: Admin: 01/04/22 20:23 Dose: 50 mg Documented By: Admin: 01/04/22 15:15 Dose: 50 mg Documented By: Admin: 01/04/22 08:42 Dose: 50 mg Documented By: Admin: 01/03/22 20:40 Dose: 50 mg Documented By: Admin: 01/03/22 16:51 Dose: 50 mg Documented By: Admin: 01/03/22 10:49 Dose: 50 mg Documented By: BASHIR Clonidine HCl (Clonidine 0.1 Mg Tablet) 0.1 mg PO BID [facility] Last Admin: 01/05/22 09:11 Dose: 0.1 mg Documented By: Admin: 01/04/22 20:22 Dose: 0.1 mg Documented By: Admin: 01/04/22 08:42 Dose: 0.1 mg Documented By: Admin: 01/03/22 20:41 Dose: 0.1 mg Documented By: Admin: 01/03/22 10:49 Dose: 0.1 mg Documented By: BASHIR Enoxaparin Sodium (Enoxaparin 40 Mg/0.4 Ml Syringe) 40 mg SUBCUT DAILY [facility] Last Admin: 01/04/22 08:41 Dose: 40 mg Documented By: Admin: 01/03/22 10:48 Dose: 40 mg Documented By: BASHIR Folic Acid (Folic Acid 1 Mg Tablet) 1 mg PO DAILY [facility] Last Admin: 01/05/22 09:11 Dose: 1 mg Documented By: Admin: 01/04/22 08:42 Dose: 1 mg Documented By: Admin: 01/03/22 10:49 Dose: 1 mg Documented By: BASHIR Gabapentin (Gabapentin 300 Mg Capsule) 300 mg PO TID [facility] Last Admin: 01/05/22 09:11 Dose: 300 mg Documented By: Admin: 01/04/22 20:22 Dose: 300 mg Documented By: Admin: 01/04/22 15:15 Dose: 300 mg Documented By: Admin: 01/04/22 08:42 Dose: 300 mg Documented By: Admin: 01/03/22 20:40 Dose: 300 mg Documented By: Admin: 01/03/22 16:51 Dose: 300 mg Documented By: Admin: 01/03/22 10:50 Dose: 300 mg Documented By: BASHIR Sodium Chloride (Normal Saline 0.9%) 1,000 mls @ 100 mls/hr IV CONT [facility] Last Infusion: 01/04/22 11:30 Dose: 0 mls/hr Documented By: Admin: 01/03/22 23:11 Dose: 100 mls/hr Documented By: Infusion: 01/03/22 20:46 Dose: 100 mls/hr Documented By: Admin: 01/03/22 10:46 Dose: 100 mls/hr Documented By: BASHIR Magnesium Sulfate (Magnesium Sulfate) 4 gm in 100 mls @ 25 mls/hr IV NOW ONE Stop: 01/05/22 13:37 Last Admin: 01/05/22 09:52 Dose: 25 mls/hr Documented By: BASHIR Co-signed By: SAMY Ibuprofen (Ibuprofen 400 Mg Tablet) 400 mg PO Q8HR PRN PRN Reason: Pain, Mild (1-3) Lorazepam (Lorazepam 2 Mg/Ml Inj) 0 mg IV CIWAPRN PRN; Protocol PRN Reason: Alcohol Withdrawal Magnesium Chloride (Magnesium Chloride 64 Mg Tablet) 128 mg PO 1200 ONE Stop: 01/04/22 12:01 Last Admin: 01/04/22 13:34 Dose: 128 mg Documented By: SAMY Multivitamins (Multivitamin 1 Tablet) 1 tab PO DAILY [facility] Last Admin: 01/05/22 09:11 Dose: 1 tab Documented By: Admin: 01/04/22 08:42 Dose: 1 tab Documented By: Admin: 01/03/22 10:50 Dose: 1 tab Documented By: BASHIR Nicotine (Nicotine 21 Mg Patch) 21 mg TOP NOW ONE Stop: 01/02/22 23:00 Last Admin: 01/02/22 23:17 Dose: 21 mg Documented By: YUSUF Nicotine (Nicotine 14 Patch) 14 mg TOP DAILY [facility] Last Admin: 01/05/22 09:10 Dose: 14 mg Documented By: Admin: 01/04/22 08:42 Dose: 14 mg Documented By: Admin: 01/03/22 10:50 Dose: Not Given Documented By: BASHIR Ondansetron HCl (Ondansetron 4 Mg/2 Ml Inj) 4 mg IV NOW ONE Stop: 01/02/22 23:00 Last Admin: 01/02/22 23:11 Dose: 4 mg Documented By: YUSUF Ondansetron HCl (Ondansetron 4 Mg/2 Ml Inj) 4 mg IV Q6HR PRN PRN Reason: Nausea And Vomiting Pantoprazole Sodium (Pantoprazole 40 Mg Vial) 40 mg IV NOW ONE Stop: 01/02/22 23:00 Last Admin: 01/02/22 23:11 Dose: 40 mg Documented By: YUSUF Pantoprazole Sodium (Pantoprazole 40 Mg Vial) 40 mg IV DAILY [facility] Pantoprazole Sodium (Pantoprazole Dr 40 Mg Tablet) 40 mg PO 0700 [facility] Pantoprazole Sodium (Pantoprazole Dr 20 Mg Tablet) 20 mg PO 0700,2100 [facility] Last Admin: 01/05/22 06:00 Dose: 20 mg Documented By: Admin: 01/04/22 20:23 Dose: 20 mg Documented By: Admin: 01/04/22 06:21 Dose: 20 mg Documented By: Admin: 01/03/22 20:40 Dose: 20 mg Documented By: Admin: 01/03/22 10:48 Dose: 20 mg Documented By: BASHIR Phenobarbital (Phenobarbital 65 Mg/Ml Vial) 260 mg IV NOW ONE Stop: 01/03/22 00:28 Last Admin: 01/03/22 00:37 Dose: 260 mg Documented By: ROXANNA Phenobarbital (Phenobarbital 65 Mg/Ml Vial) 130 mg IV NOW ONE Stop: 01/03/22 03:21 Last Admin: 01/03/22 03:26 Dose: 130 mg Documented By: YUSUF Phenobarbital (Phenobarbital 65 Mg/Ml Vial) 130 mg IV NOW ONE Stop: 01/03/22 05:13 Last Admin: 01/03/22 05:16 Dose: 130 mg Documented By: YUSUF Phenobarbital (Phenobarbital 65 Mg/Ml Vial) 130 mg IV NOW ONE Stop: 01/03/22 06:42 Last Admin: 01/03/22 06:45 Dose: 130 mg Documented By: YUSUF Potassium Chloride (Potassium Chloride 20 Meq/15 Ml Udc) 40 meq PO NOW ONE Stop: 01/02/22 22:33 Last Admin: 01/02/22 22:53 Dose: 40 meq Documented By: YUSUF Potassium Chloride (Potassium Chloride 20 Meq Tab) 40 meq PO NOW ONE Stop: 01/02/22 22:33 Last Admin: 01/02/22 22:53 Dose: 40 meq Documented By: YUSUF Thiamine HCl (Thiamine 100 Mg Tablet) 100 mg PO DAILY [facility] Stop: 01/06/22 09:01 Last Admin: 01/05/22 09:11 Dose: 100 mg Documented By: Admin: 01/04/22 08:42 Dose: 100 mg Documented By: Admin: 01/03/22 10:48 Dose: 100 mg Documented By: BASHIR Vital Signs Vital signs: Vital Signs - 8 hr 01/02/22 23:00 01/02/22 23:00 01/02/22 23:30 Pulse Rate 99 H Respiratory Rate 26 H Blood Pressure 138/83 131/81 Pulse Oximetry 97 01/02/22 23:30 01/03/22 00:00 01/03/22 00:00 Pulse Rate 91 H 106 H Respiratory Rate 21 24 Blood Pressure 130/86 Pulse Oximetry 97 98 01/03/22 00:30 01/03/22 00:30 01/03/22 01:00 Pulse Rate 96 H Respiratory Rate 26 H Blood Pressure 122/69 125/69 Pulse Oximetry 95 01/03/22 01:00 01/03/22 01:30 01/03/22 01:31 Pulse Rate 94 H 110 H 105 H Respiratory Rate 19 22 26 H Blood Pressure Pulse Oximetry 94 97 99 01/03/22 01:31 01/03/22 02:00 01/03/22 02:00 Pulse Rate 96 H Respiratory Rate 22 Blood Pressure 151/86 H 138/80 Pulse Oximetry 98 01/03/22 02:30 01/03/22 02:30 01/03/22 03:00 Pulse Rate 93 H Respiratory Rate 20 Blood Pressure 118/60 149/88 H Pulse Oximetry 95 01/03/22 03:00 01/03/22 03:30 01/03/22 04:00 Pulse Rate 102 H 83 Respiratory Rate Blood Pressure 142/93 H Pulse Oximetry 97 01/03/22 04:00 01/03/22 04:30 Pulse Rate 100 H 89 Respiratory Rate Blood Pressure Pulse Oximetry 97 97 MDM - Alcohol Lab Data Result diagrams: 01/05/22 04:42 01/05/22 04:42 Labs: Lab Results 01/02/22 01/02/22 01/02/22 Range/Units 21:05 21:05 21:05 WBC 7.3 (4.5-11.0) X10^3/uL RBC 4.85 (4.5-5.9) X10^6/uL Hgb 15.0 (13.5-17.5) g/dL Hct 43.9 (41-53) % MCV 90.5 (80-100) fL MCH 31.0 (26-34) PG MCHC 34.3 (30-36) % RDW 12.9 (11.6-14.8) % Plt Count 121 L (150-400) X10^3/uL Neut % (Auto) 41.1 L (50-75) % Lymph % (Auto) 49.6 H (25-40) % [place]borne % (Auto) 8.4 (3-14) % Eos % (Auto) 0.7 L (2-4) % Baso % (Auto) 0.2 (0-2) % Neut # (Auto) 3000 (2451-5734) /uL Lymph # (Auto) 3600 (3216-4613) /uL [place]borne # (Auto) 600 (0-900) /uL Eos # (Auto) 0 (0-450) /uL Baso # (Auto) 0 (0-100) /uL Sodium 136 L (137-145) mmol/L Potassium 3.3 L (3.4-5.1) mmol/L Chloride 96 L (98-107) mmol/L Carbon Dioxide 25 (22-32) mmol/L BUN 6 L (9-20) mg/dL Creatinine 0.62 L (0.66-1.25) mg/dL Estimated GFR > 60 (>60) mL/min BUN/Creatinine Ratio 9.7 (6-22) Glucose 142 H (70-100) mg/dL Calcium 8.8 (8.4-10.2) mg/dL Total Bilirubin 0.8 (0.2-1.3) mg/dL AST 138 H (17-59) IU/L ALT 88 H (<50) IU/L Alkaline Phosphatase 94 (38-126) U/L Total Protein 7.6 (6.3-8.2) g/dL Albumin 4.4 (3.5-5.0) g/dL Globulin 3.2 (1.7-4.1) g/dL Albumin/Globulin Ratio 1.4 (1.0-2.8) TSH 0.95 (0.47-4.68) uIU/mL Urine Color Urine Appearance Urine pH (4.5-8.0) Ur Specific [place] (1.000-1.035) Urine Protein (Negative) Urine Glucose (UA) (Negative) g/dL Urine Ketones (NEGATIVE) Urine Occult Blood (Negative) Urine Nitrate (Negative) Urine Bilirubin (NEGATIVE) Urine Urobilinogen (0.2) E.U./dL Ur Leukocyte Esterase (NEGATIVE) Urine RBC (0-5/HPF) Urine WBC (0-5/HPF) Urine Bacteria (None) Ur Culture Indicated? Micro UA Comment U Opiates 300ng/mL cut (Negative) Ur Oxycodone Screen (Negative) Urine Methadone Screen (Negative) Ur Barbiturates Screen (Negative) U Tricyclic Antidepress (Negative) Ur Phencyclidine Scrn (Negative) Ur Amphetamines Screen (Negative) U Methamphetamines Scrn (Negative) Ur MDMA Scrn (Ecstasy) (Negative) U Benzodiazepines Scrn (Negative) Urine Cocaine Screen (Negative) U Marijuana (THC) Screen (Negative) Ethyl Alcohol 280 H ( - 10) mg/dL SARS-CoV-2 (PCR) (Negative) 01/02/22 01/02/22 01/02/22 Range/Units 21:05 22:10 22:10 WBC (4.5-11.0) X10^3/uL RBC (4.5-5.9) X10^6/uL Hgb (13.5-17.5) g/dL Hct (41-53) % MCV (80-100) fL MCH (26-34) PG MCHC (30-36) % RDW (11.6-14.8) % Plt Count (150-400) X10^3/uL Neut % (Auto) (50-75) % Lymph % (Auto) (25-40) % Osborne % (Auto) (3-14) % Eos % (Auto) (2-4) % Baso % (Auto) (0-2) % Neut # (Auto) (9233-1307) /uL Lymph # (Auto) (1503-2108) /uL Osborne # (Auto) (0-900) /uL Eos # (Auto) (0-450) /uL Baso # (Auto) (0-100) /uL Sodium (137-145) mmol/L Potassium (3.4-5.1) mmol/L Chloride (98-107) mmol/L Carbon Dioxide (22-32) mmol/L BUN (9-20) mg/dL Creatinine (0.66-1.25) mg/dL Estimated GFR (>60) mL/min BUN/Creatinine Ratio (6-22) Glucose (70-100) mg/dL Calcium (8.4-10.2) mg/dL Total Bilirubin (0.2-1.3) mg/dL AST (17-59) IU/L ALT (<50) IU/L Alkaline Phosphatase (38-126) U/L Total Protein (6.3-8.2) g/dL Albumin (3.5-5.0) g/dL Globulin (1.7-4.1) g/dL Albumin/Globulin Ratio (1.0-2.8) TSH (0.47-4.68) uIU/mL Urine Color Yellow Urine Appearance Clear Urine pH 7.0 (4.5-8.0) Ur Specific [place] <=1.005 (1.000-1.035) Urine Protein Negative (Negative) Urine Glucose (UA) Negative (Negative) g/dL Urine Ketones Trace H (NEGATIVE) Urine Occult Blood Negative (Negative) Urine Nitrate Negative (Negative) Urine Bilirubin Negative (NEGATIVE) Urine Urobilinogen 4.0 H (0.2) E.U./dL Ur Leukocyte Esterase Negative (NEGATIVE) Urine RBC None seen (0-5/HPF) Urine WBC None seen (0-5/HPF) Urine Bacteria None seen (None) Ur Culture Indicated? Cult not indicated Micro UA Comment Microscopic normal U Opiates 300ng/mL cut Negative (Negative) Ur Oxycodone Screen Negative (Negative) Urine Methadone Screen Negative (Negative) Ur Barbiturates Screen Negative (Negative) U Tricyclic Antidepress Negative (Negative) Ur Phencyclidine Scrn Negative (Negative) Ur Amphetamines Screen Negative (Negative) U Methamphetamines Scrn Negative (Negative) Ur MDMA Scrn (Ecstasy) Negative (Negative) U Benzodiazepines Scrn Negative (Negative) Urine Cocaine Screen Negative (Negative) U Marijuana (THC) Screen Positive H (Negative) Ethyl Alcohol ( - 10) mg/dL SARS-CoV-2 (PCR) Negative (Negative) 01/03/22 01/03/22 Range/Units 00:45 00:45 WBC (4.5-11.0) X10^3/uL RBC (4.5-5.9) X10^6/uL Hgb (13.5-17.5) g/dL Hct (41-53) % MCV (80-100) fL MCH (26-34) PG MCHC (30-36) % RDW (11.6-14.8) % Plt Count (150-400) X10^3/uL Neut % (Auto) (50-75) % Lymph % (Auto) (25-40) % Osborne % (Auto) (3-14) % Eos % (Auto) (2-4) % Baso % (Auto) (0-2) % Neut # (Auto) (6286-8183) /uL Lymph # (Auto) (5224-5135) /uL [place] # (Auto) (0-900) /uL Eos # (Auto) (0-450) /uL Baso # (Auto) (0-100) /uL Sodium (137-145) mmol/L Potassium 4.1 (3.4-5.1) mmol/L Chloride (98-107) mmol/L Carbon Dioxide (22-32) mmol/L BUN (9-20) mg/dL Creatinine (0.66-1.25) mg/dL Estimated GFR (>60) mL/min BUN/Creatinine Ratio (6-22) Glucose (70-100) mg/dL Calcium (8.4-10.2) mg/dL Total Bilirubin (0.2-1.3) mg/dL AST (17-59) IU/L ALT (<50) IU/L Alkaline Phosphatase (38-126) U/L Total Protein (6.3-8.2) g/dL Albumin (3.5-5.0) g/dL Globulin (1.7-4.1) g/dL Albumin/Globulin Ratio (1.0-2.8) TSH (0.47-4.68) uIU/mL Urine Color Urine Appearance Urine pH (4.5-8.0) Ur Specific [place] (1.000-1.035) Urine Protein (Negative) Urine Glucose (UA) (Negative) g/dL Urine Ketones (NEGATIVE) Urine Occult Blood (Negative) Urine Nitrate (Negative) Urine Bilirubin (NEGATIVE) Urine Urobilinogen (0.2) E.U./dL Ur Leukocyte Esterase (NEGATIVE) Urine RBC (0-5/HPF) Urine WBC (0-5/HPF) Urine Bacteria (None) Ur Culture Indicated? Micro UA Comment U Opiates 300ng/mL cut (Negative) Ur Oxycodone Screen (Negative) Urine Methadone Screen (Negative) Ur Barbiturates Screen (Negative) U Tricyclic Antidepress (Negative) Ur Phencyclidine Scrn (Negative) Ur Amphetamines Screen (Negative) U Methamphetamines Scrn (Negative) Ur MDMA Scrn (Ecstasy) (Negative) U Benzodiazepines Scrn (Negative) Urine Cocaine Screen (Negative) U Marijuana (THC) Screen (Negative) Ethyl Alcohol 152 H ( - 10) mg/dL SARS-CoV-2 (PCR) (Negative) Discharge Plan Departure Patient Disposition: Admitted As Inpatient Clinical Impression: Alcohol abuse, Alcohol withdrawal syndrome Admit Date/Time: 01/03/22 06:38 Admit Provider: Yumiko Marin
[2022-01-02] MEDS: POTASSIUM CHLORIDE 20 MEQ/15 ML UDC 40 MEQ PO (22:53)
[2022-01-02] MEDS: POTASSIUM CHLORIDE 20 MEQ TAB 40 MEQ PO (22:53)
[2022-01-02] MEDS: ONDANSETRON 4 MG/2 ML INJ IV (23:11)
[2022-01-02] MEDS: PANTOPRAZOLE 40 MG VIAL IV (23:11)
[2022-01-02] MEDS: NICOTINE 21 MG PATCH TOP (23:17)
[2022-01-03] VITALS (24 sets, daily range): BP systolic 106–162; BP diastolic 58–97; PULSE 79–110; RESP 19–26; TEMP 36.8–37.2; O2SAT 94–100; BMI 25.0
[2022-01-03] MEDS: PHENobarbital 65 MG/ML VIAL 260 MG IV (00:37)
[2022-01-03 01:02] LABS: Ethanol (ETOH) 152 mg/dL
[2022-01-03 01:37] LABS: HEMOLYSIS 16 (0-50); Potassium 4.1 mmol/L (3.4-5.1)
[2022-01-03] MEDS: PHENobarbital 65 MG/ML VIAL 130 MG IV ×3 (03:26→06:45)
--- NOTE | 2022-01-03 03:58 | PC.NURSE ---
[facility]uj[facility] and [facility] reviewing intake information after speaking with Pt on phone. Either facility will call back if Pt meets criteria
--- NOTE | 2022-01-03 05:54 | PC.NURSE ---
Pt sleeping at this time.
--- NOTE | 2022-01-03 07:13 | P.HP_ITS ---
History of Present Illness History of Present Illness Date Patient Seen: 01/03/22 Time Patient Seen: 06:30 Chief complaint: ETOH DETOX Narrative: Rashi Mcnair is a 56-year-old male with a history of hypertension and COPD presented today and alcohol withdrawal. Patient lives in [place] and works full-time but is wanting to quit drinking. He states/drink was yesterday morning after consuming a 5th of hard liquor DC. He has been shaky, T tingly legs, hot flashes dizziness and was cold 20 minutes ago. He feels that this is caused by a anxiety and depression for which he takes medications for but did not recall the name. Review of his prescription indicates he is taking buspirone and possibly gabapentin for this. He also states he has been smoking quite a bit he normally smokes 1/2-1 pack a day and it is up to 2 packs a day over the past few days. He denies chest pain or shortness of breath. Patient was previously admitted for 2 days for alcohol withdrawal in August of this year. In the emergency department they attempted to medically stabilize the patient so that he could be transferred to a detox unit. He had actually been under review by 2 facilities 1 in [place] the other in [place]. He started become more symptomatic after having received a loading dose and 3 doses of phenobarbital and decision was made to admit the patient. He was also hypokalemic and was given 2 40 mEq doses of oral potassium. He is afebrile, blood pressure 142/93, heart rate 89, respiratory rate 20 oxygen saturation of 97% on room air he weighs 70.3 kg with a BMI of 25. CBC is unremarkable except for a low platelet count of 121 though this appears to be his baseline, sodium was 136 potassium 4.1 chloride 96 BUN 6 creatinine 0.62 with EGFR greater than 60 glucose was 142 AST 138 ALT 88 TSH 0.95 he had trace ketones in his urine, urine toxicology was positive for THC and his alcohol level was 152 and COVID-19 PCR is negative. Patient History Medical History Emphysema of lung Enlarged tonsils and adenoids GERD (gastroesophageal reflux disease) Hypertension Surgical History H/O nasal septoplasty Family & Social History Family History (Updated 01/03/22 @ 07:16 by NILES Palafox) Mother COPD (chronic obstructive pulmonary disease) Scleroderma Father COPD (chronic obstructive pulmonary disease) Myocardial infarction Social History: household members spouse Tobacco & Substance use: Smoking Status Current every day smoker alcohol intake frequency 3 or more drinks per day Substance Use Type with marijuana detected in his urine Meds Home Medications and Allergies Home Medications Medication Instructions Recorded Confirmed Type omeprazole 40 mg capsule,delayed 40 mg PO BID acid 09/11/21 09/11/21 History release buspirone 10 mg tablet 10 mg PO BID #60 tabs 09/13/21 Rx clonidine HCl 0.1 mg tablet 0.1 mg PO BID #60 tabs 09/13/21 Rx folic acid 1 mg tablet 1 mg PO DAILY #60 tabs 09/13/21 Rx gabapentin 300 mg capsule 300 mg PO TID #90 caps 09/13/21 Rx multivitamin with folic acid 400 1 tab PO DAILY #60 tabs 09/13/21 Rx mcg tablet (Tab-A-Sharee) nicotine 14 mg/24 hr daily 1 patch transdermal DAILY #28 ea 09/13/21 Rx transdermal patch (Nicoderm CQ) thiamine HCl (vitamin B1) 500 mg 500 mg PO DAILY #60 tabs 09/13/21 Rx tablet trazodone 50 mg tablet 50 mg PO BEDTIME #60 tabs 09/13/21 Rx Allergies Allergy/AdvReac Type Severity Reaction Status Date / Time No Known Drug Allergies Allergy Verified 09/11/21 03:40 Review of Systems Review of Systems ROS: Yes All systems reviewed with the patient and are negative except as otherwise documented Exam Vital Signs (past 8 hours): - 01/02/22 23:30 01/02/22 23:30 01/03/22 00:00 Pulse Rate 91 H Respiratory Rate 21 Blood Pressure 131/81 130/86 Pulse Oximetry 97 01/03/22 00:00 01/03/22 00:30 01/03/22 00:30 Pulse Rate 106 H 96 H Respiratory Rate 24 26 H Blood Pressure 122/69 Pulse Oximetry 98 95 01/03/22 01:00 01/03/22 01:00 01/03/22 01:30 Pulse Rate 94 H 110 H Respiratory Rate 19 22 Blood Pressure 125/69 Pulse Oximetry 94 97 01/03/22 01:31 01/03/22 01:31 01/03/22 02:00 Pulse Rate 105 H Respiratory Rate 26 H Blood Pressure 151/86 H 138/80 Pulse Oximetry 99 01/03/22 02:00 01/03/22 02:30 01/03/22 02:30 Pulse Rate 96 H 93 H Respiratory Rate 22 20 Blood Pressure 118/60 Pulse Oximetry 98 95 01/03/22 03:00 01/03/22 03:00 01/03/22 03:30 Pulse Rate 102 H 83 Respiratory Rate Blood Pressure 149/88 H Pulse Oximetry 97 01/03/22 04:00 01/03/22 04:00 01/03/22 04:30 Pulse Rate 100 H 89 Respiratory Rate Blood Pressure 142/93 H Pulse Oximetry 97 97 Oxygen Delivery Method Room Air Narrative Exam Narrative: Gen: Alert, oriented, well-developed 56 y.o. male, anxious HEENT: normocephalic, atraumatic, conjunctiva clear, sclera non-icteric, oral mucosa pink and moist Neck: supple, full ROM, no JVD, trachea is midline Resp: Lungs CTA, non-labored breathing CV: RRR, no murmur or rubs Abd: soft, non-tender, normoactive BTs Skin: multiple tattoos in upper extremities, no lesions or rashes, dry and intact Neuro: mildly tremulous, Alert and oriented X 4 w/no focal deficits. Speech clear and coherent. Extremities: moves all 4 extremities, is ambulatory, negative Johnny?s sign Psyche: pleasant and cooperative Objective Labs Result Diagrams: 01/02/22 21:05 01/03/22 00:45 Labs: Laboratory Results - last 24 hr 01/02/22 01/02/22 01/02/22 21:05 21:05 21:05 WBC 7.3 RBC 4.85 Hgb 15.0 Hct 43.9 MCV 90.5 MCH 31.0 MCHC 34.3 RDW 12.9 Plt Count 121 L Neut % (Auto) 41.1 L Lymph % (Auto) 49.6 H [place] % (Auto) 8.4 Eos % (Auto) 0.7 L Baso % (Auto) 0.2 Neut # (Auto) 3000 Lymph # (Auto) 3600 [place] # (Auto) 600 Eos # (Auto) 0 Baso # (Auto) 0 Sodium 136 L Potassium 3.3 L Chloride 96 L Carbon Dioxide 25 BUN 6 L Creatinine 0.62 L Estimated GFR > 60 BUN/Creatinine Ratio 9.7 Glucose 142 H Calcium 8.8 Total Bilirubin 0.8 AST 138 H ALT 88 H Alkaline Phosphatase 94 Total Protein 7.6 Albumin 4.4 Globulin 3.2 Albumin/Globulin Ratio 1.4 TSH 0.95 Urine Color Urine Appearance Urine pH Ur Specific [place] Urine Protein Urine Glucose (UA) Urine Ketones Urine Occult Blood Urine Nitrate Urine Bilirubin Urine Urobilinogen Ur Leukocyte Esterase Urine RBC Urine WBC Urine Bacteria Ur Culture Indicated? Micro UA Comment U Opiates 300ng/mL cut Ur Oxycodone Screen Urine Methadone Screen Ur Barbiturates Screen U Tricyclic Antidepress Ur Phencyclidine Scrn Ur Amphetamines Screen U Methamphetamines Scrn Ur MDMA Scrn (Ecstasy) U Benzodiazepines Scrn Urine Cocaine Screen U Marijuana (THC) Screen Ethyl Alcohol 280 H SARS-CoV-2 (PCR) 01/02/22 01/02/22 01/02/22 21:05 22:10 22:10 WBC RBC Hgb Hct MCV MCH MCHC RDW Plt Count Neut % (Auto) Lymph % (Auto) [place] % (Auto) Eos % (Auto) Baso % (Auto) Neut # (Auto) Lymph # (Auto) [place] # (Auto) Eos # (Auto) Baso # (Auto) Sodium Potassium Chloride Carbon Dioxide BUN Creatinine Estimated GFR BUN/Creatinine Ratio Glucose Calcium Total Bilirubin AST ALT Alkaline Phosphatase Total Protein Albumin Globulin Albumin/Globulin Ratio TSH Urine Color Yellow Urine Appearance Clear Urine pH 7.0 Ur Specific [place] <=1.005 Urine Protein Negative Urine Glucose (UA) Negative Urine Ketones Trace H Urine Occult Blood Negative Urine Nitrate Negative Urine Bilirubin Negative Urine Urobilinogen 4.0 H Ur Leukocyte Esterase Negative Urine RBC None seen Urine WBC None seen Urine Bacteria None seen Ur Culture Indicated? Cult not indicated Micro UA Comment Microscopic normal U Opiates 300ng/mL cut Negative Ur Oxycodone Screen Negative Urine Methadone Screen Negative Ur Barbiturates Screen Negative U Tricyclic Antidepress Negative Ur Phencyclidine Scrn Negative Ur Amphetamines Screen Negative U Methamphetamines Scrn Negative Ur MDMA Scrn (Ecstasy) Negative U Benzodiazepines Scrn Negative Urine Cocaine Screen Negative U Marijuana (THC) Screen Positive H Ethyl Alcohol SARS-CoV-2 (PCR) Negative 01/03/22 01/03/22 00:45 00:45 WBC RBC Hgb Hct MCV MCH MCHC RDW Plt Count Neut % (Auto) Lymph % (Auto) [place] % (Auto) Eos % (Auto) Baso % (Auto) Neut # (Auto) Lymph # (Auto) [place] # (Auto) Eos # (Auto) Baso # (Auto) Sodium Potassium 4.1 Chloride Carbon Dioxide BUN Creatinine Estimated GFR BUN/Creatinine Ratio Glucose Calcium Total Bilirubin AST ALT Alkaline Phosphatase Total Protein Albumin Globulin Albumin/Globulin Ratio TSH Urine Color Urine Appearance Urine pH Ur Specific [place] Urine Protein Urine Glucose (UA) Urine Ketones Urine Occult Blood Urine Nitrate Urine Bilirubin Urine Urobilinogen Ur Leukocyte Esterase Urine RBC Urine WBC Urine Bacteria Ur Culture Indicated? Micro UA Comment U Opiates 300ng/mL cut Ur Oxycodone Screen Urine Methadone Screen Ur Barbiturates Screen U Tricyclic Antidepress Ur Phencyclidine Scrn Ur Amphetamines Screen U Methamphetamines Scrn Ur MDMA Scrn (Ecstasy) U Benzodiazepines Scrn Urine Cocaine Screen U Marijuana (THC) Screen Ethyl Alcohol 152 H SARS-CoV-2 (PCR) Assessment & Plan Assessment & Plan narrative: Rashi Mcnair will be admitted to the ICU for treatment and management of acute alcohol withdrawal. Acute alcohol withdrawal, present on admission * Due to high CIWAs he is bit admitted to the ICU in anticipation that he may require a Precedex drip * CIWA protocol * Seizure precautions * Social work consult for rehab placement * Oral thiamine, folic acid and multivitamin * Patient normally takes omeprazole he will receive oral Protonix 40 mg daily Essential hypertension, chronic * He takes clonidine 0.1 mg p.o. b.i.d. and this will be continued Tobacco dependence acute on chronic * He is written for a Nicoderm patch 14 mcg change daily Depression and anxiety, chronic * Home dose of buspirone and gabapentin will be continued VTE Prophylaxis: Wells risk score 0 XEnoxaparin 40 mg subQ once daily X Bilateral SCDs Patient is admitted to the inpatient intensive care service due to the severity of disease, risks of further disease progression and this stay is expected to exceed 2 midnights. FEN: IV fluids: NS at 100 ml/hour, diet: heart healthy, labs: CBC, C/BMP, liver enzymes, Mag, PT/INR Consultants None Dispo: Rehab when medically stable Code status: Full code as discussed with the patient who identifies Tahira Tabby as his surrogate and POA. [X] I have utilized all available immediate resources to obtain, update, or review of the patient's current medications VTE Deep Vein Thrombosis/Pulmonary Embolism Present on Admission: No MIPS - Admit I confirm the patient?s Advance Care Plan is present, Code status is documented, Surrogate decision maker is in patient?s record: Yes MIPS - DC The patient has current or prior documentation of left ventricular ejection fraction (LVEF) less than 40%, or moderate or severely depressed left ventricular systolic function.: No COVID-19 COVID-19 status: Negative Result date/Date tested (Pos, Neg/Pending): 01/03/22
[2022-01-03] MEDS: SODIUM CHLORIDE 0.9% 1,000 ML 100 ML IV ×2 (10:46→23:11)
[2022-01-03] MEDS: THIAMINE 100 MG TABLET PO (10:48)
[2022-01-03] MEDS: PANTOPRAZOLE DR 20 MG TABLET PO ×2 (10:48→20:40)
[2022-01-03] MEDS: ENOXAPARIN 40 MG/0.4 ML SYRINGE SUBCUT (10:48)
[2022-01-03] MEDS: MAG HYDROX/ALUM/SIMETH 30 ML UDC PO (10:48)
[2022-01-03] MEDS: cloNIDine 0.1 MG TABLET PO ×2 (10:49→20:41)
[2022-01-03] MEDS: FOLIC ACID 1 MG TABLET PO (10:49)
[2022-01-03] MEDS: chlordiazePOXIDE 25 MG CAPSULE 50 MG PO ×3 (10:49→20:40)
[2022-01-03] MEDS: GABAPENTIN 300 MG CAPSULE PO ×3 (10:50→20:40)
[2022-01-03] MEDS: MULTIVITAMIN 1 TABLET 1 TAB PO (10:50)
[2022-01-03] MEDS: BUSPIRONE 5 MG TABLET 10 MG PO ×2 (10:50→20:41)
--- NOTE | 2022-01-03 14:22 | CM.IDA ---
Initial Discharge Assessment Patient is 56 y/o male who was admitted to ICU for ETOH detox. Patient has [employer] for insurance and his PCP is not listed. EMR was reviewed. Per MD, patient was admitted to ICU for treatment and management of acute alcohol withdrawal. In ED patient was being reviewed by [facility] and [facility] detox facilities. Patient has hx of Hypertension, ETOH use and COPD. Per RN, patient's CIWA score has been ranging in 2-5 but patient's BAL was 152 early this morning so there are anticipated withdrawal symptoms. Patient resides in [place], [place] and works from [employer] and is contracted with [employer]. endorses that she lives with but has been staying out of the house for the last week due to 's concern for patient's ETOH use. It is reported that patient is independent with ADLs at baseline. OPERATING ROOM SPECIALIST enters room to meet with patient, patient is fast asleep and present in room is patient's Tahira (Ph. # [phone]). Per and RN, patient has not been able to sleep all night. endorses that patient has hx of depression and ETOH use. Per RN, patient reported drinking a fifth of bourbon daily and patient's last drink was yesterday. endorses concern for patient's ETOH use and states that patient has endorsed interest in inpatient rehabilitation to address MOUNA. endorses that patient presented to ED in August 2021 and was admitted to hospital for similar symptoms. reports that patient was going to start M[facility] outpatient treatment at [facility] (in [place], [place]) but patient did not end up following through. OPERATING ROOM SPECIALIST to attempt to assess patient tomorrow. Patient's states that she will leave for the day and return to visit patient tomorrow at about 1730. Per EMR, patient's ICU stay is anticipated to exceed 2 midnights. Plan: f/u with patient POC, OPERATING ROOM SPECIALIST to attempt to meet with patient tomorrow for OPERATING ROOM SPECIALIST MOUNA assessment. OPERATING ROOM SPECIALIST to explore options of transferring patient to detox or [facility] for further MOUNA tx when medically clear. 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 No Advance Directives on File No History Provided By Significant Other,Medical Record Prior Living Arrangements House Household Members spouse Type of transporation used prior to Drives own vehicle admit Independent with ADL's Yes Is patient alert and oriented? Yes Caregiver for Another No Patient/Family Preference Drug/Alcohol Rehab Comment Patient's is interested in MOUNA inpatient treatment for patient and states that patient is interested as well. OPERATING ROOM SPECIALIST not able to meet with patient at this time. Referrals Initiated Other Additional Comment If pt remains interested, will provide ETOH resources and if possible transfer to [facility] inpatient facility Review Status In Process Please Provide Date Initial DC 01/03/22 Assessment Was Performed
--- NOTE | 2022-01-03 14:49 | PC.NURSE ---
Admit Note pt arrived to room 231 via wheelchair from ER at 0900. SBA to bed, steady on feet. No tremors noted, pt reported feeling intermittent itching and heaviness in arms and legs, CIWA 2. Denies anxiety. Received phenobarbitol in ER and is on librium taper currently. Sleeping majority of shift. SpO2 upper 90s on RA, SR in the 70s. Oriented to room and to bed/tv/call light controls. Call light within reach, using appropriately to make needs known. Seizure pads in place, suction set up in room. Cell phone, clothing, necklace at bedside/on patient's person. Pt declines to lock up valuables at this time. Bed alarm on. , Tahira, at bedside this AM.
[2022-01-03] MEDS: POLYVINYL ALCOHOL DROPS 1 DROPS EYE-BOTH (18:08)
[2022-01-04] VITALS (7 sets, daily range): BP systolic 101–116; BP diastolic 62–74; PULSE 66–104; RESP 12–44; TEMP 36.3–37; O2SAT 98–99
[2022-01-04 05:18] LABS: Add Manual Diff / Slide Review NO; Basophils Absolute Auto 0 /uL (0-100); Basophils Percent Auto 0.3 % (0-2); Eosinophils Absolute Auto 100 /uL (0-450); Eosinophils Percent Auto 0.7 % (2-4); Hematocrit 38.5 % (41-53); Lymphocytes Absolute Auto 2900 /uL (1100-4500); Mean Corpuscular HGB Conc 33.8 % (30-36); Mean Corpuscular Hemoglobin 31.3 PG (26-34); Mean Corpuscular Volume 92.6 fL (80-100); Monocytes Absolute Auto 700 /uL (0-900); Monocytes Percent Auto 6.9 % (3-14); Neutrophils Absolute Auto 6200 /uL (1500-7000); Neutrophils Percent Auto 63.1 % (50-75); Platelet Count 90 X10^3/uL (150-400); Red Blood Cell Count 4.15 X10^6/uL (4.5-5.9); White Blood Cell Count 9.8 X10^3/uL (4.5-11.0)
[2022-01-04 05:35] LABS: Alanine Aminotransferase 50 IU/L (<50); Albumin 3.5 g/dL (3.5-5.0); Albumin Globulin Ratio 1.3 (1.0-2.8); Alkaline Phosphatase 78 U/L (38-126); Aspartate Aminotransferase 58 IU/L (17-59); BUN Creatinine Ratio 13.8 (6-22); Bilirubin Total 0.9 mg/dL (0.2-1.3); Bilirubin Unconjugated 0.8 mg/dL (0.0-1.1); Blood Urea Nitrogen 8 mg/dL (9-20); Calcium 8.7 mg/dL (8.4-10.2); Carbon Dioxide 33 mmol/L (22-32); Chloride 97 mmol/L (98-107); Estimated Glomerular Filt Rate > 60 mL/min (>60); Globulin 2.7 g/dL (1.7-4.1); Glucose 108 mg/dL (70-100); HEMOLYSIS < 15 (0-50); Magnesium 1.6 mg/dL (1.6-2.3); Potassium 3.9 mmol/L (3.4-5.1); Sodium 131 mmol/L (137-145); Total Protein 6.2 g/dL (6.3-8.2)
[2022-01-04] MEDS: PANTOPRAZOLE DR 20 MG TABLET PO ×2 (06:21→20:23)
[2022-01-04] MEDS: ENOXAPARIN 40 MG/0.4 ML SYRINGE SUBCUT (08:41)
[2022-01-04] MEDS: FOLIC ACID 1 MG TABLET PO (08:42)
[2022-01-04] MEDS: THIAMINE 100 MG TABLET PO (08:42)
[2022-01-04] MEDS: chlordiazePOXIDE 25 MG CAPSULE 50 MG PO ×3 (08:42→20:23)
[2022-01-04] MEDS: MULTIVITAMIN 1 TABLET 1 TAB PO (08:42)
[2022-01-04] MEDS: NICOTINE 14 PATCH 14 MG TOP (08:42)
[2022-01-04] MEDS: cloNIDine 0.1 MG TABLET PO ×2 (08:42→20:22)
[2022-01-04] MEDS: GABAPENTIN 300 MG CAPSULE PO ×3 (08:42→20:22)
[2022-01-04] MEDS: BUSPIRONE 5 MG TABLET 10 MG PO ×2 (08:42→20:23)
--- NOTE | 2022-01-04 11:23 | PM.PN.1 ---
Subjective Subjective Date Patient Seen: 01/04/22 Time Patient Seen: 10:00 Interval history: Sitting quietly at the side of the bed eating breakfast. In a good mood. No complaints. Exam Vital Signs (past 8 hours): - 01/04/22 05:03 01/04/22 08:05 01/04/22 07:00 Temperature 98.5 F Pulse Rate 84 66 Respiratory Rate 14 22 Blood Pressure 112/71 112/71 Pulse Oximetry 99 98 Oxygen Delivery Method Room Air Oxygen Flow Rate 0 0 Oxygen Delivery Method Room Air Oxygen Flow Rate 0 Narrative Exam Narrative: Gen: Alert, oriented, well-developed 56 y.o. ?in no acute medical distress. HEENT: normocephalic, atraumatic, conjunctiva clear, sclera non-icteric, oral mucosa pink and moist Neck: supple, full ROM, no JVD, trachea is midline Resp: Lungs clear to auscultation. No wheezes or crackles, non-labored breathing CV: Heart sounds S1 and S2. Normal rhythm, no murmur or rubs Abd: soft, non-tender, bowel sounds normal. Skin: multiple tattoos in upper extremities, no lesions or rashes, dry and intact Neuro: mildly tremulous, Alert and oriented X 4 w/no focal deficits. Speech clear and coherent. Extremities: moves all 4 extremities, is ambulatory, negative Johnny?s sign Psyche: pleasant and cooperative Objective Labs Result Diagrams: 01/04/22 05:00 01/04/22 05:00 Labs: Laboratory Results - last 24 hr 01/04/22 01/04/22 05:00 05:00 WBC 9.8 RBC 4.15 L Hgb 13.0 L Hct 38.5 L MCV 92.6 MCH 31.3 MCHC 33.8 RDW 13.0 Plt Count 90 L Neut % (Auto) 63.1 D Lymph % (Auto) 29.0 D [place] % (Auto) 6.9 Eos % (Auto) 0.7 L Baso % (Auto) 0.3 Neut # (Auto) 6200 Lymph # (Auto) 2900 [place] # (Auto) 700 Eos # (Auto) 100 Baso # (Auto) 0 Sodium 131 L Potassium 3.9 Chloride 97 L Carbon Dioxide 33 H BUN 8 L Creatinine 0.58 L Estimated GFR > 60 BUN/Creatinine Ratio 13.8 Glucose 108 H Calcium 8.7 Magnesium 1.6 Total Bilirubin 0.9 Conjugated Bilirubin 0.0 Unconjugated Bilirubin 0.8 AST 58 ALT 50 H Alkaline Phosphatase 78 Total Protein 6.2 L Albumin 3.5 Globulin 2.7 Albumin/Globulin Ratio 1.3 [facility] Medical History Emphysema of lung Enlarged tonsils and adenoids GERD (gastroesophageal reflux disease) Hypertension Surgical History H/O nasal septoplasty Family History (Updated 01/03/22 @ 07:16 by NILES Palafox) Mother COPD (chronic obstructive pulmonary disease) Scleroderma Father COPD (chronic obstructive pulmonary disease) Myocardial infarction Social History household members: spouse Smoking Status: Current every day smoker alcohol intake: current Assessment & Plan Assessment & Plan narrative: Patient with alcohol withdrawal on admission who acutely now is controlled with current medication. 1.Acute alcohol withdrawal, present on admission Due to high CIWAs he is bit admitted to the ICU in anticipation that he may require a Precedex drip. However CIWAl has decreased and patient well controlled on current medication of Librium t.i.d.. CIWA protocol Seizure precautions Social work consult for rehab placement, continue Oral thiamine, folic acid and multivitamin Patient normally takes omeprazole he will receive oral Protonix 40 mg daily while in hospital 2.Essential hypertension, chronic He takes clonidine 0.1 mg p.o. b.i.d. continue 3.Tobacco dependence acute on chronic Nicoderm patch 14 mcg change daily 4. Depression and anxiety, chronic Home dose of buspirone and gabapentin will be continued. Stable. VTE Prophylaxis: Wells risk score 0 XEnoxaparin 40 mg subQ once daily X Bilateral SCDs Patient was admitted to the inpatient intensive care service due to the severity of disease, risks of further disease progression and this stay is expected to exceed 2 midnights. However patient has stabilized and does not need to be ICU at this time. FEN: IV fluids: NS at 100 ml/hour, diet: heart healthy. Can discontinue IVs since the patient is eating and drinking well. Consultants? None Dispo: Rehab when medically stable Code status: Full code as discussed with the patient who identifies Tahira Mcnair as his surrogate and POA. VTE Deep Vein Thrombosis/Pulmonary Embolism Present on Admission: No MIPS - Admit I confirm the patient?s Advance Care Plan is present, Code status is documented, Surrogate decision maker is in patient?s record: Yes Time Spent With Patient Critical Care time: I spent a total of [] minutes of critical care time on this patient's care today; this time is exclusive of procedural time. Quality VTE Deep Vein Thrombosis/Pulmonary Embolism Present on Admission: No
[2022-01-04] MEDS: MAGNESIUM CHLORIDE 64 MG TABLET 128 MG PO (13:34)
--- NOTE | 2022-01-04 13:50 | PC.NURSE ---
Patient reports double vision and questions if it is coming from a medication he is being given IP that he does not take OP.
--- NOTE | 2022-01-04 16:38 | CM.DPC ---
DCP/continued: Reviewed chart. Met this afternoon with patient explained CM/SW role. Patient sitting in recliner at time of visit. Patient complains of weakness/grogginess which he believes is from current medication. Patient reports that he feels primarily done with detox patient reports that he wants to [facility] to inpatient treatment when medically stable. Patient reports that his spouse/Tahira is working on the location? Tahira expected to be here around 5:30pm this evening. RUBBER BLOCK LAYER asked Aminata to check in with both patient and spouse about d/c plan. Unclear at this time if patient's health care plan will cover any portion of alcohol rehabilitation. They may require patient enroll in intense outpatient program instead? Patient reports that I have to do something. Patient reports that spouse has been looking into [facility]. RUBBER BLOCK LAYER Aminata to check in with patient and spouse and update them on what most insurance companies will cover and what they will not cover. Most all private insurance company's will pay for only small portion of inpatient programs. However, this will need to be investigated if finances an issue on whether patient goes or not. Plus there might be waiting lists and specific requirements that patient will need to meet. Patient no longer feels like he will need detox. P: Anticipate home vs. inpatient private/insurance pay alcohol program. JESUS
--- NOTE | 2022-01-04 19:19 | CM.DPC ---
DCP Note SECTION CREWS ACTIVITIES CLERK meets with patient who reports that his has called a few inpatient tx facilities and he wants to follow through with her recommendation. Per patient's communication with , [facility] in [place], [place] (Ph. # [phone]) is in patient's insurance network. SECTION CREWS ACTIVITIES CLERK attempts to call [facility] inpt but there was no one available to answer the phone. SECTION CREWS ACTIVITIES CLERK calls [facility] and arranges for patient to have intake assessment via phone with patient's and daughter present in room at 6:30pm. SECTION CREWS ACTIVITIES CLERK faxes patient's records per their request to (fx: [phone]) and provides patient's insurance information. SECTION CREWS ACTIVITIES CLERK enters room to ensure intake assessment is taking place. Present in room is patient, patient's and daughter. endorses that her preference is for patient to go to [facility] as she spoke with them earlier and had received recommendations about that facility. SECTION CREWS ACTIVITIES CLERK endorses that SECTION CREWS ACTIVITIES CLERK will come back to room after patient gets off of the phone. SECTION CREWS ACTIVITIES CLERK re-enters room. reports that it was reported that patient is a good candidate for the facility and they will accept him if and when patient is medically clear, and the facility just needs to get authorization from patient's insurance. Patient presents as in agreement with with plan, patient's states that they will cover the cost of what insurance does not cover. endorses that she can provide transportation for patient. SECTION CREWS ACTIVITIES CLERK calls [facility] (Ph. # [phone]) and speaks with Max who assessed patient. He confirmed what patient's informed SECTION CREWS ACTIVITIES CLERK. It was reported that they will work on insurance authorization and await medical clearance for patient from and for their team to medically clear patient as well. It is reported that the plan is for this facility to accept patient. Plan: DCP to f/u with hospitalist regarding patient's medical clearance, and coordinate with [facility] [place] to facilitate patient's acceptance to [facility] inpatient program. Patient's requests phone call in the morning if it is identified that patient is not medically clear on 01/05/22 BRIANNA Larios
[2022-01-05 03:00] VITALS: BP 104/55; PULSE 62; RESP 20; TEMP 36.6; O2SAT 98
[2022-01-05 05:30] LABS: Add Manual Diff / Slide Review NO; Basophils Absolute Auto 0 /uL (0-100); Basophils Percent Auto 0.1 % (0-2); Eosinophils Absolute Auto 100 /uL (0-450); Eosinophils Percent Auto 1.1 % (2-4); Hematocrit 35.5 % (41-53); Hemoglobin 12.2 g/dL (13.5-17.5); Lymphocytes Absolute Auto 2100 /uL (1100-4500); Lymphocytes Percent Auto 36.7 % (25-40); Mean Corpuscular HGB Conc 34.3 % (30-36); Mean Corpuscular Hemoglobin 31.6 PG (26-34); Monocytes Absolute Auto 500 /uL (0-900); Monocytes Percent Auto 8.3 % (3-14); Neutrophils Absolute Auto 3100 /uL (1500-7000); Neutrophils Percent Auto 53.8 % (50-75); Platelet Count 71 X10^3/uL (150-400); Red Blood Cell Count 3.86 X10^6/uL (4.5-5.9); Red Cell Distribution Width 12.9 % (11.6-14.8); White Blood Cell Count 5.8 X10^3/uL (4.5-11.0)
[2022-01-05 05:41] LABS: Alanine Aminotransferase 36 IU/L (<50); Albumin 3.1 g/dL (3.5-5.0); Albumin Globulin Ratio 1.2 (1.0-2.8); Alkaline Phosphatase 77 U/L (38-126); Aspartate Aminotransferase 39 IU/L (17-59); Bilirubin Total 0.2 mg/dL (0.2-1.3); Bilirubin Unconjugated 0.1 mg/dL (0.0-1.1); Blood Urea Nitrogen 6 mg/dL (9-20); Calcium 8.9 mg/dL (8.4-10.2); Carbon Dioxide 33 mmol/L (22-32); Chloride 99 mmol/L (98-107); Estimated Glomerular Filt Rate > 60 mL/min (>60); Globulin 2.6 g/dL (1.7-4.1); Glucose 126 mg/dL (70-100); HEMOLYSIS < 15 (0-50); Magnesium 1.5 mg/dL (1.6-2.3); Potassium 4.1 mmol/L (3.4-5.1); Sodium 133 mmol/L (137-145); Total Protein 5.7 g/dL (6.3-8.2)
[2022-01-05] MEDS: PANTOPRAZOLE DR 20 MG TABLET PO (06:00)
[2022-01-05 07:45] VITALS: BP 112/78; PULSE 92; RESP 18; TEMP 36.7; O2SAT 99
[2022-01-05] MEDS: NICOTINE 14 PATCH 14 MG TOP (09:10)
[2022-01-05] MEDS: FOLIC ACID 1 MG TABLET PO (09:11)
[2022-01-05] MEDS: MULTIVITAMIN 1 TABLET 1 TAB PO (09:11)
[2022-01-05] MEDS: chlordiazePOXIDE 25 MG CAPSULE 50 MG PO (09:11)
[2022-01-05] MEDS: cloNIDine 0.1 MG TABLET PO (09:11)
[2022-01-05] MEDS: GABAPENTIN 300 MG CAPSULE PO (09:11)
[2022-01-05] MEDS: THIAMINE 100 MG TABLET PO (09:11)
[2022-01-05] MEDS: BUSPIRONE 5 MG TABLET 10 MG PO (09:11)
--- NOTE | 2022-01-05 09:38 | PM.PN.1 ---
Exam Vital Signs (past 8 hours): - 01/05/22 03:00 Temperature 97.9 F Pulse Rate 62 Respiratory Rate 20 Blood Pressure 104/55 L Pulse Oximetry 98 Oxygen Flow Rate 0 Oxygen Delivery Method Room Air Oxygen Flow Rate 0 Narrative Exam Narrative: Gen: Alert, oriented, well-developed 56 y.o. ?in no acute medical distress. HEENT: normocephalic, atraumatic, conjunctiva clear, sclera non-icteric, oral mucosa pink and moist Neck: supple, full ROM, no JVD, trachea is midline Resp: Lungs clear to auscultation. No wheezes or crackles, non-labored breathing CV: Heart sounds S1 and S2. Normal rhythm, no murmur or rubs Abd: soft, non-tender, bowel sounds normal. Skin: multiple tattoos in upper extremities, no lesions or rashes, dry and intact Neuro: mildly tremulous, Alert and oriented X 4 w/no focal deficits. Speech clear and coherent. Extremities: moves all 4 extremities, is ambulatory, negative Johnny?s sign Psyche: pleasant and cooperative Objective Labs Result Diagrams: 01/05/22 04:42 01/05/22 04:42 Labs: Laboratory Results - last 24 hr 01/05/22 01/05/22 04:42 04:42 WBC 5.8 RBC 3.86 L Hgb 12.2 L Hct 35.5 L MCV 92.0 MCH 31.6 MCHC 34.3 RDW 12.9 Plt Count 71 L Neut % (Auto) 53.8 Lymph % (Auto) 36.7 [place] % (Auto) 8.3 Eos % (Auto) 1.1 L Baso % (Auto) 0.1 Neut # (Auto) 3100 Lymph # (Auto) 2100 [place] # (Auto) 500 Eos # (Auto) 100 Baso # (Auto) 0 Sodium 133 L Potassium 4.1 Chloride 99 Carbon Dioxide 33 H BUN 6 L Creatinine 0.60 L Estimated GFR > 60 BUN/Creatinine Ratio 10.0 Glucose 126 H Calcium 8.9 Magnesium 1.5 L Total Bilirubin 0.2 Conjugated Bilirubin 0.0 Unconjugated Bilirubin 0.1 AST 39 ALT 36 Alkaline Phosphatase 77 Total Protein 5.7 L Albumin 3.1 L Globulin 2.6 Albumin/Globulin Ratio 1.2 [facility] Medical History Emphysema of lung Enlarged tonsils and adenoids GERD (gastroesophageal reflux disease) Hypertension Surgical History H/O nasal septoplasty Family History (Updated 01/03/22 @ 07:16 by NILES Palafox) Mother COPD (chronic obstructive pulmonary disease) Scleroderma Father COPD (chronic obstructive pulmonary disease) Myocardial infarction Social History household members: spouse Smoking Status: Current every day smoker alcohol intake: current Assessment & Plan Assessment & Plan narrative: Patient with alcohol withdrawal on admission who acutely now is controlled with current medication. 1. Acute alcohol withdrawal, present on admission Due to high CIWAs he is bit admitted to the ICU in anticipation that he may require a Precedex drip. However CIWA has decreased and patient well controlled on current medication of Librium t.i.d.. CIWA protocol Seizure precautions Social work consult for rehab placement, continue Oral thiamine, folic acid and multivitamin Patient normally takes omeprazole he will receive oral Protonix 40 mg daily while in hospital 2. Essential hypertension, chronic He takes clonidine 0.1 mg p.o. b.i.d. continue 3. Tobacco dependence acute on chronic Nicoderm patch 14 mcg change daily 4. Depression and anxiety, chronic Home dose of buspirone and gabapentin will be continued. Stable. VTE Prophylaxis: Enoxaparin 40 mg subQ once daily, Bilateral SCDs Dispo: Rehab when medically stable Code status: Full code as discussed with the patient who identifies Tahira Mcnair as his surrogate and POA. I confirm the patient?s Advance Care Plan is present, Code status is documented, Surrogate decision maker is in patient?s record: Yes Time Spent With Patient Critical Care time: I spent a total of [] minutes of critical care time on this patient's care today; this time is exclusive of procedural time. Quality VTE Deep Vein Thrombosis/Pulmonary Embolism Present on Admission: No
[2022-01-05] MEDS: MAGNESIUM SULFATE 4 GM/100 ML PIGGYBACK IV (09:52)
--- NOTE | 2022-01-05 11:12 | P.DS_ITS ---
History of Present Illness History of Present Illness Date Patient Seen: 01/05/22 Time Patient Seen: 11:12 Chief complaint: ETOH DETOX Narrative: Rashi Mcnair is a 56-year-old male with a history of hypertension and COPD presented today and alcohol withdrawal.? Patient lives in [place] and works full-time but is wanting to quit drinking.? He states/drink was yesterday morning after consuming a 5th of hard liquor [place].? He has been shaky, T tingly legs, hot flashes dizziness and was cold 20 minutes ago.? He feels that this is caused by a anxiety and depression for which he takes medications for but did not recall the name.? Review of his prescription indicates he is taking buspirone and possibly gabapentin for this.? He also states he has been smoking quite a bit he normally smokes 1/2-1 pack a day and it is up to 2 packs a day over the past few days.? He denies chest pain or shortness of breath.? Patient was previously admitted for 2 days for alcohol withdrawal in August of this year. In the emergency department they attempted to medically stabilize the patient so that he could be transferred to a detox unit.? He had actually been under review by 2 facilities 1 in [place] the other in [place].? He started become more symptomatic after having received a loading dose and 3 doses of phenobarbital and decision was made to admit the patient.? He was also hypokalemic and was given 2 40 mEq doses of oral potassium.? He is afebrile, blood pressure 142/93, heart rate 89, respiratory rate 20 oxygen saturation of 97% on room air he weighs 70.3 kg with a BMI of 25.? CBC is unremarkable except for a low platelet count of 121 though this appears to be his baseline, sodium was 136 potassium 4.1 chloride 96 BUN 6 creatinine 0.62 with EGFR greater than 60 glucose was 142 AST 138 ALT 88 TSH 0.95 he had trace ketones in his urine, urine toxicology was positive for THC and his alcohol level was 152 and COVID-19 PCR is negative. Discharge Providers Provider Date of admission: 01/03/22 06:38 Discharge Date: 01/05/22 Consults: 01/03/22 07:02 Consult to [facility] [place] - [employer] [facility] Routine Comment: Kimmie has his info [facility] Consult needed for:: Substance Abuse Assess Discharge provider: Remy Power DO Summary Hospital Course Discharge Diagnosis: 1. Acute alcohol withdrawal, present on admission 2. Essential hypertension, chronic 3. Tobacco dependence acute on chronic 4. Depression and anxiety, chronic Hospital Course: Patient admitted for alcohol withdrawals controlled with librium. He was arranged for inpatient alcohol treatment with social work and was discharged home on a librium taper. Time Spent with Patient Time spent: Greater than 30 minutes Exam Vital Signs (past 8 hours): - 01/05/22 07:45 01/05/22 09:00 Temperature 98.1 F Pulse Rate 92 H Respiratory Rate 18 Blood Pressure 112/78 Pulse Oximetry 99 Oxygen Delivery Method Room Air Oxygen Flow Rate 0 Oxygen Delivery Method Room Air Oxygen Flow Rate 0 Narrative Exam Narrative: Gen: Alert, oriented, well-developed 56 y.o. ?in no acute medical distress. HEENT: normocephalic, atraumatic, conjunctiva clear, sclera non-icteric, oral mucosa pink and moist Neck: supple, full ROM, no JVD, trachea is midline Resp: Lungs clear to auscultation. No wheezes or crackles, non-labored breathing CV: Heart sounds S1 and S2. Normal rhythm, no murmur or rubs Abd: soft, non-tender, bowel sounds normal. Skin: multiple tattoos in upper extremities, no lesions or rashes, dry and intact Neuro: nontremulous, Alert and oriented X 4 w/no focal deficits. Speech clear and coherent. Extremities: moves all 4 extremities, is ambulatory, negative Johnny?s sign Psyche: pleasant and cooperative Objective Labs Result Diagrams: 01/05/22 04:42 01/05/22 04:42 Labs: Laboratory Results - last 24 hr 01/05/22 01/05/22 04:42 04:42 WBC 5.8 RBC 3.86 L Hgb 12.2 L Hct 35.5 L MCV 92.0 MCH 31.6 MCHC 34.3 RDW 12.9 Plt Count 71 L Neut % (Auto) 53.8 Lymph % (Auto) 36.7 [place] % (Auto) 8.3 Eos % (Auto) 1.1 L Baso % (Auto) 0.1 Neut # (Auto) 3100 Lymph # (Auto) 2100 [place] # (Auto) 500 Eos # (Auto) 100 Baso # (Auto) 0 Sodium 133 L Potassium 4.1 Chloride 99 Carbon Dioxide 33 H BUN 6 L Creatinine 0.60 L Estimated GFR > 60 BUN/Creatinine Ratio 10.0 Glucose 126 H Calcium 8.9 Magnesium 1.5 L Total Bilirubin 0.2 Conjugated Bilirubin 0.0 Unconjugated Bilirubin 0.1 AST 39 ALT 36 Alkaline Phosphatase 77 Total Protein 5.7 L Albumin 3.1 L Globulin 2.6 Albumin/Globulin Ratio 1.2 PFSH Medical History Emphysema of lung Enlarged tonsils and adenoids GERD (gastroesophageal reflux disease) Hypertension Surgical History H/O nasal septoplasty Family History Mother COPD (chronic obstructive pulmonary disease) Scleroderma Father COPD (chronic obstructive pulmonary disease) Myocardial infarction Social History household members: spouse Smoking Status: Current every day smoker alcohol intake: current Discharge Plan Discharge Plan Patient Disposition: Home Provider Discharge Comment: You are now out of withdrawals. I am putting you on a librium taper to stop it slowly. Please follow the pharmacy instructions carefully. Discharge orders & Medications Prescriptions: New chlordiazepoxide HCl 25 mg Capsule See Rx Instructions .ROUTE .COMPLEX Qty: 10 0RF Rx Instructions: 25 mg orally twice daily for 3 days, then 25mg once daily for 4 days then sto p Continued omeprazole 40 mg capsule,delayed release(DR/EC) 40 mg PO BID clonidine HCl 0.1 mg Tablet 0.1 mg PO BID Qty: 60 1RF folic acid 1 mg Tablet 1 mg PO DAILY Qty: 60 1RF multivitamin with folic acid [Tab-A-Sharee] 400 mcg Tablet 1 tab PO DAILY Qty: 60 1RF thiamine HCl (vitamin B1) 500 mg tablet 500 mg PO DAILY Qty: 60 1RF buspirone 10 mg tablet 10 mg PO BID Qty: 60 1RF trazodone 50 mg tablet 50 mg PO BEDTIME Qty: 60 1RF gabapentin 300 mg capsule 300 mg PO TID Qty: 90 1RF naltrexone 50 mg tablet 50 mg PO DAILY Label Comments: take 1 tablet by mouth every morning cholecalciferol (vitamin D3) [Vitamin D3] 125 mcg (5,000 unit) Tablet 125 mcg PO BID Visit Report/Discharge Packet Instructions: Alcohol Use Disorder Quality VTE Deep Vein Thrombosis/Pulmonary Embolism Present on Admission: No
[2022-01-05 12:00] VITALS: BP 118/73; PULSE 70; RESP 15; TEMP 36.6; O2SAT 99
--- NOTE | 2022-01-05 14:58 | CM.DPNOTE ---
DC Note DC to [facility] today via family transport. DC Summary faxed to [facility] at [place] by Yesica Franklin I called [facility] (Ph. # [phone]) in [place], [place], confirmed w/[facility] that patient was expected and confirmed arrival would be via spouse's pov. Amalia mentioned that patient will probably be medically clear for d/c tomorrow (01/05), if so this tx facility can accept patient tomorrow, if not we will need to update. Family plans to transport patient, tx facility will coordinate cost after insurance coverage pt and family and they indicate they are willing to pay the difference. I faxed medical records for their review, they may need discharge summary. Spouse Tahira (Ph. # [phone]) updated, agreeable to plan and here for transport. Patient/spouse appreciative JW
== END 2022-01-05 13:40 | disposition home or self-care (01) | DRG 897 ==
LOC: ED 01-03 02:11 → AC 01-03 06:38 → ICU 01-03 12:16 → AC 01-04 15:59
PROVIDERS: Admitting Provider Nurse Practitioner Family; Emergency Provider Emergency Medicine; Referring Provider Emergency Medicine; Visit Provider Nurse Practitioner Family
DX: F10.239 Alcohol dependence with withdrawal, unspecified (principal); E87.6 Hypokalemia; I10 Essential (primary) hypertension; F32.A Depression, unspecified; F41.9 Anxiety disorder, unspecified; K21.9 Gastro-esophageal reflux disease without esophagitis; F17.200 Nicotine dependence, unspecified, uncomplicated; Y90.8 Blood alcohol level of 240 mg/100 ml or more; Z20.822 Contact with and (suspected) exposure to COVID-19
CPT/HCPCS: 36415; 80048; 80053; 80076; 80305; 80320; 81001; 83735; 84132; 84443; 85025; 87635; 87797; 93005; 93010; 96374; 96375; 96376; 99284; C9803; C9113; J1650; J2405; J2560; J3475